=== PATIENT | female | born 1965 | race Caucasian/White ===

== ENCOUNTER 2017-08-24 14:58 | Emergency (ER) | payer MEDICARE, MEDICAID ==
--- NOTE | 2017-08-24 15:13 | EDM.PDOC ---
ED HPI GENERAL MEDICAL PROBLEM - General Chief Complaint: ENT Problem Stated Complaint: SORE THROAT Time Seen by Provider: 08/24/17 15:13 Source of Information: Reports: Patient History Limitations: Reports: No Limitations - History of Present Illness INITIAL COMMENTS - FREE TEXT/NARRATIVE: HISTORY AND PHYSICAL: History of present illness: Patient is a 52-year-old female who presents to the emergency room with a 2 day history of sore throat and nasal congestion. She states a family member was recently diagnosed with strep throat and is concerned she may have it as well. She denies any fever or chills, chest pain or shortness of breath. She denies any abdominal pain, nausea, vomiting, diarrhea or constipation. Review of systems: As per history of present illness and below otherwise all systems reviewed and negative. Past medical history: As per history of present illness and as reviewed below otherwise noncontributory. Surgical history: As per history of present illness and as reviewed below otherwise noncontributory. Social history: No reported history of drug or alcohol abuse. Family history: As per history of present illness and as reviewed below otherwise noncontributory. Physical exam: General: Well developed and well Nourished 52-year-old female. Alert and oriented. Nontoxic appearing and in no acute distress. HEENT: Atraumatic, normocephalic, pupils equal and reactive bilaterally, negative for conjunctival pallor or scleral icterus, mucous membranes moist, posterior oropharynx is erythematous with white patchy exudate, boggy lymph nodes bilaterally, neck supple, nontender, trachea midline. No drooling or trismus noted. No meningeal signs Lungs: Clear to auscultation, breath sounds equal bilaterally, chest nontender. Heart: S1S2, regular rate and rhythm without overt murmur Abdomen: Soft, nondistended, nontender. Negative for masses or hepatosplenomegaly. Negative for costovertebral tenderness. Pelvis: Stable nontender. Genitourinary: Deferred. Rectal: Deferred. Skin: Intact, warm, dry. No lesions or rashes noted. Extremities: Atraumatic, negative for cords or calf pain. Neurovascular unremarkable. Neuro: Awake, alert, oriented. Cranial nerves II through XII unremarkable. Cerebellum unremarkable. Motor and sensory unremarkable throughout. Exam nonfocal. Notes: Will treat the patient with azithromycin (allergy to PCN) Diagnostics: [] Therapeutics: [] Impression: Pharyngitis Plan: 1. Please take the antibiotic as prescribed. 2. Tylenol and/or ibuprofen as needed for pain management. Tramadol has been prescribed for moderate to severe pain. This medication may cause drowsiness so do not take it will driving her needing to be functioning outside of the house. Other [id number] products may be used such as lozenges, Tylenol cough and cold and Robitussin. 3. WArm saltwater gargle and rinse and spit 3-4 times daily. Please get a new toothbrush once her antibiotics are completed. 4. Lopid your primary caregiver in the next 1-2 days. Return to the ED as needed and as discussed. Definitive disposition and diagnosis as appropriate pending reevaluation and review of above. Duration: Day(s): Location: Reports: Neck throat Pain Score (Numeric/FACES): 4 - Related Data Allergies Allergy/AdvReac Type Severity Reaction Status Date / Time codeine Allergy Headache Verified 08/24/17 15:20 Penicillins Allergy Anaphylactic Verified 08/24/17 15:20 Shock Home Meds: Home Meds . [Unable to Verify Home Med List] 07/04/14 [History] Social & Family History - Tobacco Use Smoking Status *Q: Current Every Day Smoker Years of Tobacco use: 30 - Alcohol Use Days Per Week of Alcohol Use: 0 - Recreational Drug Use Recreational Drug Use: No ED ROS ENT - Review of Systems Review Of Systems: ROS reveals no pertinent complaints other than HPI. ED EXAM, ENT - Physical Exam Exam: See Below (See dictation) Course - Vital Signs Last Recorded V/S: Last Vital Signs Temp 100.1 F 08/24/17 15:21 Pulse 109 H 08/24/17 15:39 Resp 18 08/24/17 15:39 BP 145/60 H 08/24/17 15:39 Pulse Ox 98 08/24/17 15:39 Departure - Departure Time of Disposition: 15:30 Disposition: Home, Self-Care 01 Clinical Impression: Pharyngitis Qualifiers: Pharyngitis/tonsillitis etiology: unspecified etiology Qualified Code(s): J02.9 - Acute pharyngitis, unspecified - Discharge Information Instructions: Pharyngitis, [id number] Referrals: Simeon Mora MD [Primary Care Provider] - Forms: ED Department Discharge Additional Instructions: The following information is given to patients seen in the emergency department who are being discharged to home. This information is to outline your options for follow-up care. We provide all patients seen in our emergency department with a follow-up referral. The need for follow-up, as well as the timing and circumstances, are variable depending upon the specifics of your emergency department visit. If you don't have a primary care physician on staff, we will provide you with a referral. We always advise you to contact your personal physician following an emergency department visit to inform them of the circumstance of the visit and for follow-up with them and/or the need for any referrals to a consulting specialist. The emergency department will also refer you to a specialist when appropriate. This referral assures that you have the opportunity for follow-up care with a specialist. All of these measure are taken in an effort to provide you with optimal care, which includes your follow-up. Under all circumstances we always encourage you to contact your private physician who remains a resource for coordinating your care. When calling for follow-up care, please make the office aware that this follow-up is from your recent emergency room visit. If for any reason you are refused follow-up, please contact the [facility] Emergency Department at and asked to speak to the emergency department charge nurse. [facility] [address] [place] [id number] 1. Please take the antibiotic as prescribed. 2. Tylenol and/or ibuprofen as needed for pain management. Tramadol has been prescribed for moderate to severe pain. This medication may cause drowsiness so do not take it will driving her needing to be functioning outside of the house. Other [id number] products may be used such as lozenges, Tylenol cough and cold and Robitussin. 3. WArm saltwater gargle and rinse and spit 3-4 times daily. Please get a new toothbrush once her antibiotics are completed. 4. Lopid your primary caregiver in the next 1-2 days. Return to the ED as needed and as discussed.
[2017-08-24 16:22] VITALS: BP 145/60
== END 2017-08-24 15:39 | disposition home or self-care (01) ==
LOC: MW.ED 14:58
DX: J02.9 Acute pharyngitis, unspecified (principal); F17.200 Nicotine dependence, unspecified, uncomplicated; Z88.5 Allergy status to narcotic agent; Z88.0 Allergy status to penicillin
CPT/HCPCS: 99282; 99283

== ENCOUNTER 2019-01-18 09:12 | Observation (INO) | payer MEDICAID, MEDICARE ==
[2019-01-18] MEDS ORDERED: Sodium Chloride 0.9% 2.5 ML Syringe FLUSH PRN (09:35)
[2019-01-18] MEDS ORDERED: Sodium Chloride 0.9% 1,000 ML IV ONE ×2 (09:35→12:06)
[2019-01-18] MEDS ORDERED: Sodium Chloride 0.9% 10 ML Syringe FLUSH PRN (09:35)
[2019-01-18] MEDS ORDERED: Ondansetron 4 MG/2 ML SDV IVPUSH ONE (09:35)
--- NOTE | 2019-01-18 09:43 | EDM.PDOC ---
ED HPI GENERAL MEDICAL PROBLEM - General Chief Complaint: General Stated Complaint: NAUSEA,ABD PAIN Time Seen by Provider: 01/18/19 09:38 Source of Information: Reports: Patient History Limitations: Reports: No Limitations - History of Present Illness INITIAL COMMENTS - FREE TEXT/NARRATIVE: HISTORY AND PHYSICAL: History of present illness: Patient is a 53-year-old female presents to the ED with complaint of nausea and vomiting 1 week. She states that she since has developed abdominal pain and nonbloody diarrhea. She's had subjective fevers and chills as well as headache. She states that she restarted Remicade for ankylosing spondylitis 2 weeks ago. Past surgical history includes cholecystectomy. Past medical history significant for hypertension and diabetes. Review of systems: As per history of present illness and below otherwise all systems reviewed and negative. Past medical history: As per history of present illness and as reviewed below otherwise noncontributory. Surgical history: As per history of present illness and as reviewed below otherwise noncontributory. Social history: No reported history of drug or alcohol abuse. Family history: As per history of present illness and as reviewed below otherwise noncontributory. Physical exam: General: Patient sitting comfortably in no acute distress and nontoxic appearing HEENT: Atraumatic, normocephalic, pupils reactive, negative for conjunctival pallor or scleral icterus, mucous membranes moist, throat clear, neck supple, nontender, trachea midline. No meningeal signs. Lungs: Clear to auscultation, breath sounds equal bilaterally, chest nontender. Heart: S1S2, regular, negative for clicks, rubs, or overt murmur. Abdomen: Mild diffuse abdominal tenderness to palpation. Soft, nondistended. Negative for masses or hepatosplenomegaly. Negative for costovertebral tenderness. No rigidity, rebound, guarding. Pelvis: Stable nontender. Genitourinary: Deferred. Rectal: Deferred. Extremities: Atraumatic, negative for cords or calf pain. Neurovascular unremarkable. Neuro: Awake, alert, oriented. Cranial nerves II through XII unremarkable. Cerebellum unremarkable. Motor and sensory unremarkable throughout. Exam nonfocal. Notes: Discussed with Dr. Arreaga admitting patient for IV fluids and UTI, he will order antibiotic to be started on the floor. Diagnostics: CBC, CMP, lipase, UA, CT abdomen/pelvis w/o contrast Therapeutics: 1L NS IV 4mg zofran IV 40mEq Potassium Chloride PO Prescriptions: Impression: Dehydration, Pyelonephritis, Hypokalemia, Acute kidney injury Plan: Discussed with Dr. Arreaga, patient will be admitted to observation. Definitive disposition and diagnosis as appropriate pending reevaluation and review of above. Generalized Pain Score (Numeric/FACES): 8 - Related Data Allergies Allergy/AdvReac Type Severity Reaction Status Date / Time codeine Allergy Headache Verified 01/18/19 09:22 Penicillins Allergy Anaphylactic Verified 01/18/19 09:22 Shock Home Meds: Home Meds ALPRAZolam [Alprazolam] 0.5 mg PO BID 01/18/19 [History] Albuterol [Ventolin HFA] 18 gm IH ASDIRECTED 01/18/19 [History] Azithromycin [Zithromax] 250 mg PO DAILY 01/18/19 [History] Doxycycline Hyclate [Morgidox] 100 mg PO BID 01/18/19 [History] Gabapentin [Neurontin] 800 mg PO TID 01/18/19 [History] Insulin Glarg,Human.Rec.Analog [Lantus] 0 unit SUBCUT DAILY 01/18/19 [History] Losartan/Hydrochlorothiazide [Losartan-HCTZ 100-25 MG] 1 each PO ASDIRECTED 01/28 [History] Losartan/Hydrochlorothiazide [Losartan-HCTZ 100-25 MG] 1 each PO ASDIRECTED 01/28 [History] Meloxicam 15 mg PO DAILY 01/18/19 [History] Morphine 15 mg PO Q4H PRN 01/18/19 [History] Omeprazole 40 mg PO DAILY 01/18/19 [History] Zolpidem [Ambien] 10 mg PO BEDTIME 01/18/19 [History] amLODIPine [Norvasc] 10 mg PO DAILY 01/18/19 [History] atorvaSTATin [Lipitor] 40 mg PO BEDTIME 01/18/19 [History] atorvaSTATin [Lipitor] 40 mg PO BEDTIME 01/18/19 [History] guaiFENesin/Codeine Phosphate [Cheratussin AC Syrup] 15 ml PO DAILY 01/18/19 [ History] metFORMIN HCl [Metformin ER Gastric] 1,000 mg PO ASDIRECTED 01/18/19 [History] oxyCODONE ER [OxyCONTIN] 10 mg PO Q12H PRN 01/18/19 [History] rOPINIRole [Requip] 2 mg PO BID 01/18/19 [History] Past Medical History Cardiovascular History: Reports: High Cholesterol, Hypertension SNUBBER History: Reports: Endocrine/Metabolic History: Reports: Diabetes, Type II - Infectious Disease History Infectious Disease History: Reports: Chicken Pox - Past Surgical History GI Surgical History: Reports: Cholecystectomy Female Surgical History: Reports: Hysterectomy Musculoskeletal Surgical History: Reports: Other (See Below) Other Musculoskeletal Surgeries/Procedures:: back surgery and spine disease Social & Family History - Family History Family Medical History: Noncontributory - Tobacco Use Smoking Status *Q: Current Every Day Smoker Years of Tobacco use: 40 Packs/Tins Daily: 0.5 - Caffeine Use Caffeine Use: Reports: Coffee - Recreational Drug Use Recreational Drug Use: No ED ROS GENERAL - Review of Systems Review Of Systems: ROS reveals no pertinent complaints other than HPI. ED EXAM, GENERAL - Physical Exam Exam: See Below (see dictation) Course - Vital Signs Last Recorded V/S: Last Vital Signs Temp 96.6 F 01/18/19 09:23 Pulse 85 01/18/19 10:43 Resp 18 01/18/19 10:43 BP 133/81 01/18/19 10:43 Pulse Ox 99 01/18/19 10:43 - Orders/Labs/Meds Orders: Active Orders 24 hr Category Date Time Status EKG Documentation Completion [RC] STAT Care 01/18/19 11:46 Active CULTURE URINE [RM] Stat Lab 01/18/19 11:12 Received Sodium Chloride 0.9% [Saline Flush] Med 01/18/19 09:35 Active 10 ml FLUSH ASDIRECTED PRN Sodium Chloride 0.9% [Saline Flush] Med 01/18/19 09:35 Active 2.5 ml FLUSH ASDIRECTED PRN Saline Lock Insert [OM.PC] Stat Oth 01/18/19 09:35 Ordered Medication Orders Sodium Chloride (Saline Flush) 10 ml FLUSH ASDIRECTED PRN PRN Reason: Keep Vein Open Last Admin: 01/18/19 09:47 Dose: 10 ml Sodium Chloride (Saline Flush) 2.5 ml FLUSH ASDIRECTED PRN PRN Reason: Keep Vein Open Last Admin: 01/18/19 09:47 Dose: 2.5 ml Labs: Laboratory Tests 01/18/19 01/18/19 01/18/19 Range/Units 09:47 09:47 11:12 WBC 12.13 H (4.0-11.0) K/uL RBC 5.64 (4.30-5.90) M/uL Hgb 15.1 (12.0-16.0) g/dL Hct 43.5 (36.0-46.0) % MCV 77.1 L (80.0-98.0) fL MCH 26.8 L (27.0-32.0) pg MCHC 34.7 (31.0-37.0) g/dL RDW Std Deviation 38.2 (28.0-62.0) fl RDW Coeff of Lenny 14 (11.0-15.0) % Plt Count 324 (150-400) K/uL MPV 10.20 (7.40-12.00) fL Neut % (Auto) 73.3 (48.0-80.0) % Lymph % (Auto) 17.8 (16.0-40.0) % [place] % (Auto) 8.2 (0.0-15.0) % Eos % (Auto) 0.3 (0.0-7.0) % Baso % (Auto) 0.4 (0.0-1.5) % Neut # (Auto) 8.9 H (1.4-5.7) K/uL Lymph # (Auto) 2.2 (0.6-2.4) K/uL [place] # (Auto) 1.0 H (0.0-0.8) K/uL Eos # (Auto) 0.0 (0.0-0.7) K/uL Baso # (Auto) 0.1 (0.0-0.1) K/uL Nucleated RBC % 0.0 /100WBC Nucleated RBCs # 0 K/uL Sodium 132 L (136-145) mmol/L Potassium 2.9 L (3.5-5.1) mmol/L Chloride 89 L (98-107) mmol/L Carbon Dioxide 23.2 (21.0-32.0) mmol/L BUN 34 H (7.0-18.0) mg/dL Creatinine 2.7 H (0.6-1.0) mg/dL Est Cr Clr Drug Dosing 23.16 mL/min Estimated GFR (MDRD) 18.4 ml/min Glucose 233 H (74-106) mg/dL Calcium 9.7 (8.5-10.1) mg/dL Total Bilirubin 1.4 H (0.2-1.0) mg/dL AST 34 (15-37) IU/L ALT 42 (14-63) IU/L Alkaline Phosphatase 126 H (46-116) U/L Total Protein 7.9 (6.4-8.2) g/dL Albumin 4.0 (3.4-5.0) g/dL Globulin 3.9 (2.6-4.0) g/dL Albumin/Globulin Ratio 1.0 (0.9-1.6) Lipase 91 (73-393) U/L Urine Color YELLOW Urine Appearance SLT CLOUDY Urine pH 5.0 (5.0-8.0) Ur Specific Jackson >= 1.030 (1.001-1.035) Urine Protein TRACE H (NEGATIVE) mg/dL Urine Glucose (UA) NEGATIVE (NEGATIVE) mg/dL Urine Ketones NEGATIVE (NEGATIVE) mg/dL Urine Occult Blood TRACE-INTACT H (NEGATIVE) Urine Nitrite NEGATIVE (NEGATIVE) Urine Bilirubin SMALL H (NEGATIVE) Urine Ictotest NEGATIVE Urine Urobilinogen 0.2 (<2.0) EU/dL Ur Leukocyte Esterase SMALL H (NEGATIVE) Urine RBC 0-3 (0-2/HPF) Urine WBC 10-20 (0-5/HPF) Ur Epithelial Cells FEW (NONE-FEW) Urine Bacteria 2+ H (NEGATIVE) Meds: Medications Generic Name Dose Route Start Last Admin Trade Name Freq PRN Reason Stop Dose Admin Sodium Chloride 10 ml 01/18/19 09:35 01/18/19 09:47 Saline Flush FLUSH 10 ml ASDIRECTED PRN Administration Keep Vein Open Sodium Chloride 2.5 ml 01/18/19 09:35 01/18/19 09:47 Saline Flush FLUSH 2.5 ml ASDIRECTED PRN Administration Keep Vein Open Discontinued Medications Generic Name Dose Route Start Last Admin Trade Name Freq PRN Reason Stop Dose Admin Sodium Chloride 1,000 mls @ 999 mls/hr 01/18/19 09:35 01/18/19 09:47 Normal Saline IV 01/18/19 10:35 500 mls/hr STAT ONE Infusion Ondansetron HCl 4 mg 01/18/19 09:35 01/18/19 09:47 Zofran IVPUSH 01/18/19 09:36 4 mg ONETIME ONE Administration Potassium Chloride 40 meq 01/18/19 10:29 01/18/19 10:43 Potassium Chloride PO 01/18/19 10:30 40 meq ONETIME ONE Administration Departure - Departure Time of Disposition: 11:57 Disposition: Refer to Observation Condition: Good Clinical Impression: Dehydration, Pyelonephritis, Hypokalemia, Acute kidney injury - Discharge Information Referrals: PCP,None [Primary Care Provider] - Forms: ED Department Discharge - My Orders Last 24 Hours: My Active Orders 01/18/19 09:35 Sodium Chloride 0.9% [Saline Flush] 10 ml FLUSH ASDIRECTED PRN Sodium Chloride 0.9% [Saline Flush] 2.5 ml FLUSH ASDIRECTED PRN Saline Lock Insert [OM.PC] Stat 01/18/19 11:12 CULTURE URINE [RM] Stat 01/18/19 11:46 EKG Documentation Completion [RC] STAT - Assessment/Plan Last 24 Hours: My Active Orders 01/18/19 09:35 Sodium Chloride 0.9% [Saline Flush] 10 ml FLUSH ASDIRECTED PRN Sodium Chloride 0.9% [Saline Flush] 2.5 ml FLUSH ASDIRECTED PRN Saline Lock Insert [OM.PC] Stat 01/18/19 11:12 CULTURE URINE [RM] Stat 01/18/19 11:46 EKG Documentation Completion [RC] STAT
[2019-01-18 10:16] LABS: CARBON DIOXIDE,CO2 23.2 mmol/L (21.0-32.0); POTASSIUM,K 2.9 mmol/L (3.5-5.1)
[2019-01-18] MEDS ORDERED: Potassium Chloride 10% 20 MEQ/15 ML Soln 30 ML UD Cup PO ONE (10:29)
--- NOTE | 2019-01-18 11:56 | CT ---
CT abdomen and pelvis Technique: Multiple axial sections were obtained from above the dome of the diaphragm inferiorly through the pubic symphysis. Intravenous and oral contrast not utilized. Comparison: No previous abdominal or pelvic imaging. Findings: Nothing acute is seen within the visualized lung bases. Fatty- containing area noted is between the upper lateral right abdominal musculature which is felt to represent incidental lipoma. Noncontrast appearance of the liver shows no focal abnormality. Spleen measures at the upper limits of normal in size at 12.9 cm. Adrenal glands show no nodule. Pancreas shows no discrete abnormality. Surgical clips are seen from prior cholecystectomy. Kidneys show no abnormal calcifications. Minimal vascular calcification is seen within the renal vessels. No ureteral dilatation or ureteral stone is seen. Aorta and iliac vessels shows atherosclerotic calcification without aneurysm. No retroperitoneal adenopathy or mesenteric abnormalities are seen. Small fat- containing umbilical hernia is noted. No pelvic mass or adenopathy is seen. No free fluid or inflammatory change is identified. Appendix is visualized and is normal in size. No free fluid or inflammatory change is seen within the abdomen or pelvis. Bone window settings were reviewed which shows mild scattered degenerative change within the spine which is most prominent within the apophyseal joints of the lumbar spine. Impression: Findings, which are believed to be incidental, as noted above. Nothing acute is seen on noncontrast CT study of the abdomen and pelvis. Diagnostic code #2 MTDD
--- NOTE | 2019-01-18 12:30 | PCM.HP.2 ---
<HectorAsia - Last Filed: 01/18/19 13:35> H&P History of Present Illness - General Date of Service: 01/18/19 Admit Problem/Dx: Admission Diagnosis/Problem Admission Diagnosis/Problem Dehydration - History of Present Illness Initial Comments - Free Text/Narative: The patient is a 53 year old female who reports nausea, vomiting, and diarrhea for the past week. She reports she is having 6-7 "tarry baby poops" everyday, no bright red blood. She denies sick contacts, no new foods, or recent antibiotics. Endorses diffuse abdominal pain that became much worse today. She did recently resume Remicade 2 weeks ago for her ankylosing spondylitis. She reports chills but no fever. She denies chest pain, shortness of breath, or lower ext edema. Reports PMH of insulin dependent diabetes and HTN. In the ER, work up found a slight white count of 12, hyponatremia of 132, hypokalemia of 2.9, Elevated BUN/Cr of 32/2.7 (patient denies hx of kidney issues), UA positive for leuk est, WBC, and bacteria. CT ab/pelvis showed no acute abn. EKG was sinus rhythm, no ST changes. Was started on IVF and given 40 mg of potassium. Generalized Pain Score (Numeric/FACES): 8 - Related Data Allergies/Adverse Reactions: Allergies Allergy/AdvReac Type Severity Reaction Status Date / Time codeine Allergy Headache Verified 01/18/19 13:51 Penicillins Allergy Anaphylactic Verified 01/18/19 13:51 Shock Home Medications: Home Meds ALPRAZolam [Alprazolam] 0.5 mg PO BID PRN 01/18/19 [History] Albuterol [Ventolin HFA] 2 puff IH Q4H PRN 01/18/19 [History] Gabapentin [Neurontin] 800 mg PO TID 01/18/19 [History] Losartan/Hydrochlorothiazide [Losartan-HCTZ 100-25 MG] 1 each PO DAILY 01/18/19 [History] Meloxicam 15 mg PO DAILY 01/18/19 [History] Morphine 15 mg PO BID PRN 01/18/19 [History] Omeprazole 40 mg PO DAILY 01/18/19 [History] Zolpidem [Ambien] 10 mg PO BEDTIME PRN 01/18/19 [History] amLODIPine [Norvasc] 10 mg PO DAILY 01/18/19 [History] atorvaSTATin [Lipitor] 40 mg PO BEDTIME 01/18/19 [History] guaiFENesin/Codeine Phosphate [Cheratussin AC Syrup] 15 ml PO BEDTIME PRN [History] metFORMIN HCl [Metformin ER Gastric] 1,000 mg PO BID 01/18/19 [History] oxyCODONE ER [OxyCONTIN] 10 mg PO Q6H PRN 01/18/19 [History] rOPINIRole [Requip] 2 mg PO BID 01/18/19 [History] Past Medical History Cardiovascular History: Reports: High Cholesterol, Hypertension Respiratory History: Reports: None Gastrointestinal History: Reports: None Genitourinary History: Reports: None 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: Musculoskeletal History: Reports: Other (See Below) (Ankolysing Spondylitis) Neurological History: Reports: None Psychiatric History: Reports: None Endocrine/Metabolic History: Reports: Diabetes, Type II Hematologic History: Reports: None - Infectious Disease History Infectious Disease History: Reports: Chicken Pox - Past Surgical History GI Surgical History: Reports: Cholecystectomy Female Surgical History: Reports: Hysterectomy Musculoskeletal Surgical History: Reports: Other (See Below) Other Musculoskeletal Surgeries/Procedures:: back surgery and spine disease Social & Family History - Family History Family Medical History: Noncontributory - Tobacco Use Smoking Status *Q: Current Every Day Smoker Years of Tobacco use: 40 Packs/Tins Daily: 0.5 - Caffeine Use Caffeine Use: Reports: Coffee - Recreational Drug Use Recreational Drug Use: No H&P Review of Systems - Review of Systems: Review Of Systems: See Below General: Reports: Chills. Denies: Fever HEENT: Reports: No Symptoms Pulmonary: Reports: No Symptoms Cardiovascular: Reports: No Symptoms Gastrointestinal: Reports: Abdominal Pain, Diarrhea, Nausea, Vomiting Genitourinary: Reports: No Symptoms Musculoskeletal: Reports: Back Pain Skin: Reports: No Symptoms Psychiatric: Reports: No Symptoms Neurological: Reports: No Symptoms Hematologic/Lymphatic: Reports: No Symptoms Immunologic: Reports: No Symptoms Exam - Exam Exam: See Below - Vital Signs Vital Signs: Last Vital Signs Temp 97.2 F 01/18/19 12:16 Pulse 86 01/18/19 12:16 Resp 18 01/18/19 12:16 BP 135/71 01/18/19 12:16 Pulse Ox 98 01/18/19 12:16 Weight: 96.615 kg - Exam General: Alert, Oriented HEENT: Conjunctiva Clear, EOMI, Posterior Pharynx Clear, Pupils Equal, Pupils Reactive. No: Mucosa Moist & [place] Lungs: Clear to Auscultation, Normal Respiratory Effort Cardiovascular: Regular Rate, Regular Rhythm GI/Abdominal Exam: Normal Bowel Sounds, Soft, Tender (diffusely). No: Guarding , Rigid, Rebound Extremities: No Pedal Edema Skin: Warm, Dry, Intact Neurological: Cranial Nerves Intact Neuro Extensive - Mental Status: Alert, Oriented x3 Psychiatric: Alert, Normal Affect, Normal Mood - Patient Data Lab Results Last 24 hrs: Laboratory Results - last 24 hr 01/18/19 01/18/19 01/18/19 Range/Units 09:47 09:47 11:12 WBC 12.13 H (4.0-11.0) K/uL RBC 5.64 (4.30-5.90) M/uL Hgb 15.1 (12.0-16.0) g/dL Hct 43.5 (36.0-46.0) % MCV 77.1 L (80.0-98.0) fL MCH 26.8 L (27.0-32.0) pg MCHC 34.7 (31.0-37.0) g/dL RDW Std Deviation 38.2 (28.0-62.0) fl RDW Coeff of Lenny 14 (11.0-15.0) % Plt Count 324 (150-400) K/uL MPV 10.20 (7.40-12.00) fL Neut % (Auto) 73.3 (48.0-80.0) % Lymph % (Auto) 17.8 (16.0-40.0) % Bradley % (Auto) 8.2 (0.0-15.0) % Eos % (Auto) 0.3 (0.0-7.0) % Baso % (Auto) 0.4 (0.0-1.5) % Neut # (Auto) 8.9 H (1.4-5.7) K/uL Lymph # (Auto) 2.2 (0.6-2.4) K/uL Bradley # (Auto) 1.0 H (0.0-0.8) K/uL Eos # (Auto) 0.0 (0.0-0.7) K/uL Baso # (Auto) 0.1 (0.0-0.1) K/uL Nucleated RBC % 0.0 /100WBC Nucleated RBCs # 0 K/uL Sodium 132 L (136-145) mmol/L Potassium 2.9 L (3.5-5.1) mmol/L Chloride 89 L (98-107) mmol/L Carbon Dioxide 23.2 (21.0-32.0) mmol/L BUN 34 H (7.0-18.0) mg/dL Creatinine 2.7 H (0.6-1.0) mg/dL Est Cr Clr Drug Dosing 23.16 mL/min Estimated GFR (MDRD) 18.4 ml/min Glucose 233 H (74-106) mg/dL Calcium 9.7 (8.5-10.1) mg/dL Total Bilirubin 1.4 H (0.2-1.0) mg/dL AST 34 (15-37) IU/L ALT 42 (14-63) IU/L Alkaline Phosphatase 126 H (46-116) U/L Total Protein 7.9 (6.4-8.2) g/dL Albumin 4.0 (3.4-5.0) g/dL Globulin 3.9 (2.6-4.0) g/dL Albumin/Globulin Ratio 1.0 (0.9-1.6) Lipase 91 (73-393) U/L Urine Color YELLOW Urine Appearance SLT CLOUDY Urine pH 5.0 (5.0-8.0) Ur Specific [place] >= 1.030 (1.001-1.035) Urine Protein TRACE H (NEGATIVE) mg/dL Urine Glucose (UA) NEGATIVE (NEGATIVE) mg/dL Urine Ketones NEGATIVE (NEGATIVE) mg/dL Urine Occult Blood TRACE-INTACT H (NEGATIVE) Urine Nitrite NEGATIVE (NEGATIVE) Urine Bilirubin SMALL H (NEGATIVE) Urine Ictotest NEGATIVE Urine Urobilinogen 0.2 (<2.0) EU/dL Ur Leukocyte Esterase SMALL H (NEGATIVE) Urine RBC 0-3 (0-2/HPF) Urine WBC 10-20 (0-5/HPF) Ur Epithelial Cells FEW (NONE-FEW) Urine Bacteria 2+ H (NEGATIVE) Result Diagrams: 01/18/19 09:47 01/18/19 09:47 - Problem List (1) Renal insufficiency SNOMED Code(s): 291062673, 533119691 ICD Code: N28.9 - DISORDER OF KIDNEY AND URETER, UNSPECIFIED Status: Acute Current Visit: Yes (2) UTI (urinary tract infection) SNOMED Code(s): 06951798 ICD Code: N39.0 - URINARY TRACT INFECTION, SITE NOT SPECIFIED Status: Acute Current Visit: Yes (3) Insulin dependent diabetes mellitus SNOMED Code(s): 58967502 ICD Code: E11.9 - TYPE 2 DIABETES MELLITUS WITHOUT COMPLICATIONS; Z79.4 - 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 (CURRENT) USE OF INSULIN Status: Acute Current Visit: Yes (4) HTN (hypertension) SNOMED Code(s): 78811865 ICD Code: I10 - ESSENTIAL (PRIMARY) HYPERTENSION Status: Acute Current Visit: Yes (5) Dehydration SNOMED Code(s): 50482400 ICD Code: E86.0 - DEHYDRATION Status: Acute Current Visit: Yes (6) Hypokalemia SNOMED Code(s): 91819830 ICD Code: E87.6 - HYPOKALEMIA Status: Acute Current Visit: Yes Problem List Initiated/Reviewed/Updated: Yes Orders Last 24hrs: Active Orders 24 hr Category Date Time Status Admission Status [Patient Status] [ADT] Stat ADT 01/18/19 12:00 Active EKG Documentation Completion [RC] STAT Care 01/18/19 11:46 Active CULTURE URINE [RM] Stat Lab 01/18/19 11:12 Received Sodium Chloride 0.9% [Normal Saline] 1,000 ml Med 01/18/19 12:06 Active IV STAT Sodium Chloride 0.9% [Saline Flush] Med 01/18/19 09:35 Active 10 ml FLUSH ASDIRECTED PRN Sodium Chloride 0.9% [Saline Flush] Med 01/18/19 09:35 Active 2.5 ml FLUSH ASDIRECTED PRN Saline Lock Insert [OM.PC] Stat Oth 01/18/19 09:35 Ordered Medication Orders Sodium Chloride (Normal Saline) 1,000 mls @ 125 mls/hr IV STAT ONE Stop: 01/18/19 20:05 Last Admin: 01/18/19 12:14 Dose: 125 mls/hr Sodium Chloride (Saline Flush) 10 ml FLUSH ASDIRECTED PRN PRN Reason: Keep Vein Open Last Admin: 01/18/19 09:47 Dose: 10 ml Sodium Chloride (Saline Flush) 2.5 ml FLUSH ASDIRECTED PRN PRN Reason: Keep Vein Open Last Admin: 01/18/19 09:47 Dose: 2.5 ml Assessment/Plan Comment:: 1. Admit for observation 2. Code status- DNR/DNI 3. Vitals per routine 4. I/Os per routine 5. Diet- diabetic 6. DVT prophylaxis with SCDs 7. Hypokalemia secondary to GI loss (vomiting/diarrhea)- will obtain stool studies, place on telemetry, and check mag level. Will replace potassium in IVF. Recheck BMP this evening. 8. Renal insufficiency secondary to dehydration- IVF, monitor BUN/Cr 9. UTI- urine culture pending, will start on Rocephin- patient allergic to penicillin but reports she has had Keflex before with no issue 10. Insulin dependent DMII- accuchecks and sliding scale insulin <Chava Wilson - Last Filed: 01/18/19 16:09> H&P History of Present Illness - General Admit Problem/Dx: Admission Diagnosis/Problem Admission Diagnosis/Problem Dehydration I have seen and examined the patient independently of medical leader, Dr. Hector DO. I have reviewed and agree with the plan of care as outlined for this patient by her. I have discussed the case with her. Please see orders. Exam - Vital Signs Vital Signs: Last Vital Signs Temp 36.5 C 01/18/19 13:15 Pulse 91 01/18/19 13:15 Resp 18 01/18/19 13:15 BP 140/80 01/18/19 13:15 Pulse Ox 96 01/18/19 13:15 - Patient Data Lab Results Last 24 hrs: Laboratory Results - last 24 hr 01/18/19 01/18/19 01/18/19 Range/Units 09:47 09:47 09:47 WBC 12.13 H (4.0-11.0) K/uL RBC 5.64 (4.30-5.90) M/uL Hgb 15.1 (12.0-16.0) g/dL Hct 43.5 (36.0-46.0) % MCV 77.1 L (80.0-98.0) fL MCH 26.8 L (27.0-32.0) pg MCHC 34.7 (31.0-37.0) g/dL RDW Std Deviation 38.2 (28.0-62.0) fl RDW Coeff of Lenny 14 (11.0-15.0) % Plt Count 324 (150-400) K/uL MPV 10.20 (7.40-12.00) fL Neut % (Auto) 73.3 (48.0-80.0) % Lymph % (Auto) 17.8 (16.0-40.0) % Bradley % (Auto) 8.2 (0.0-15.0) % Eos % (Auto) 0.3 (0.0-7.0) % Baso % (Auto) 0.4 (0.0-1.5) % Neut # (Auto) 8.9 H (1.4-5.7) K/uL Lymph # (Auto) 2.2 (0.6-2.4) K/uL Bradley # (Auto) 1.0 H (0.0-0.8) K/uL Eos # (Auto) 0.0 (0.0-0.7) K/uL Baso # (Auto) 0.1 (0.0-0.1) K/uL Nucleated RBC % 0.0 /100WBC Nucleated RBCs # 0 K/uL Sodium 132 L (136-145) mmol/L Potassium 2.9 L (3.5-5.1) mmol/L Chloride 89 L (98-107) mmol/L Carbon Dioxide 23.2 (21.0-32.0) mmol/L BUN 34 H (7.0-18.0) mg/dL Creatinine 2.7 H (0.6-1.0) mg/dL Est Cr Clr Drug Dosing 23.16 mL/min Estimated GFR (MDRD) 18.4 ml/min Glucose 233 H (74-106) mg/dL POC Glucose (60-110) mg/dL Calcium 9.7 (8.5-10.1) mg/dL Magnesium 1.9 (1.8-2.4) mg/dL Total Bilirubin 1.4 H (0.2-1.0) mg/dL AST 34 (15-37) IU/L ALT 42 (14-63) IU/L Alkaline Phosphatase 126 H (46-116) U/L Total Protein 7.9 (6.4-8.2) g/dL Albumin 4.0 (3.4-5.0) g/dL Globulin 3.9 (2.6-4.0) g/dL Albumin/Globulin Ratio 1.0 (0.9-1.6) Lipase 91 (73-393) U/L Urine Color Urine Appearance Urine pH (5.0-8.0) Ur Specific [place] (1.001-1.035) Urine Protein (NEGATIVE) mg/dL Urine Glucose (UA) (NEGATIVE) mg/dL Urine Ketones (NEGATIVE) mg/dL Urine Occult Blood (NEGATIVE) Urine Nitrite (NEGATIVE) Urine Bilirubin (NEGATIVE) Urine Ictotest Urine Urobilinogen (<2.0) EU/dL Ur Leukocyte Esterase (NEGATIVE) Urine RBC (0-2/HPF) Urine WBC (0-5/HPF) Ur Epithelial Cells (NONE-FEW) Urine Bacteria (NEGATIVE) 01/18/19 01/18/19 Range/Units 11:12 13:42 WBC (4.0-11.0) K/uL RBC (4.30-5.90) M/uL Hgb (12.0-16.0) g/dL Hct (36.0-46.0) % MCV (80.0-98.0) fL MCH (27.0-32.0) pg MCHC (31.0-37.0) g/dL RDW Std Deviation (28.0-62.0) fl RDW Coeff of Lenny (11.0-15.0) % Plt Count (150-400) K/uL MPV (7.40-12.00) fL Neut % (Auto) (48.0-80.0) % Lymph % (Auto) (16.0-40.0) % Bradley % (Auto) (0.0-15.0) % Eos % (Auto) (0.0-7.0) % Baso % (Auto) (0.0-1.5) % Neut # (Auto) (1.4-5.7) K/uL Lymph # (Auto) (0.6-2.4) K/uL [place] # (Auto) (0.0-0.8) K/uL Eos # (Auto) (0.0-0.7) K/uL Baso # (Auto) (0.0-0.1) K/uL Nucleated RBC % /100WBC Nucleated RBCs # K/uL Sodium (136-145) mmol/L Potassium (3.5-5.1) mmol/L Chloride (98-107) mmol/L Carbon Dioxide (21.0-32.0) mmol/L BUN (7.0-18.0) mg/dL Creatinine (0.6-1.0) mg/dL Est Cr Clr Drug Dosing mL/min Estimated GFR (MDRD) ml/min Glucose (74-106) mg/dL POC Glucose 151 H (60-110) mg/dL Calcium (8.5-10.1) mg/dL Magnesium (1.8-2.4) mg/dL Total Bilirubin (0.2-1.0) mg/dL AST (15-37) IU/L ALT (14-63) IU/L Alkaline Phosphatase (46-116) U/L Total Protein (6.4-8.2) g/dL Albumin (3.4-5.0) g/dL Globulin (2.6-4.0) g/dL Albumin/Globulin Ratio (0.9-1.6) Lipase (73-393) U/L Urine Color YELLOW Urine Appearance SLT CLOUDY Urine pH 5.0 (5.0-8.0) Ur Specific [place] >= 1.030 (1.001-1.035) Urine Protein TRACE H (NEGATIVE) mg/dL Urine Glucose (UA) NEGATIVE (NEGATIVE) mg/dL Urine Ketones NEGATIVE (NEGATIVE) mg/dL Urine Occult Blood TRACE-INTACT H (NEGATIVE) Urine Nitrite NEGATIVE (NEGATIVE) Urine Bilirubin SMALL H (NEGATIVE) Urine Ictotest NEGATIVE Urine Urobilinogen 0.2 (<2.0) EU/dL Ur Leukocyte Esterase SMALL H (NEGATIVE) Urine RBC 0-3 (0-2/HPF) Urine WBC 10-20 (0-5/HPF) Ur Epithelial Cells FEW (NONE-FEW) Urine Bacteria 2+ H (NEGATIVE) Result Diagrams: 01/18/19 09:47 01/18/19 09:47 Orders Last 24hrs: Active Orders 24 hr Category Date Time Status Admission Status [Patient Status] [ADT] Stat ADT 01/18/19 12:00 Active Accu Check [Blood Glucose Check, Bedside] [RC] TIDMEALS Care 01/18/19 12:54 Active Antiembolic Devices [RC] PER UNIT ROUTINE Care 01/18/19 12:49 Active Cardiac Monitoring [RC] . DIRECTED Care 01/18/19 12:48 Active Intake and Output [RC] Q12H Care 01/18/19 12:48 Active Telemetry Monitoring [Cardiac Monitoring] [RC] Q8H Care 01/18/19 13:49 Active Vital Signs [RC] Q4H Care 01/18/19 12:48 Active [employer] Diet [DIET] Diet 01/18/19 Dinner Active BASIC METABOLIC PANEL,BMP [CHEM] AM Lab 01/19/19 05:11 Ordered BASIC METABOLIC PANEL,BMP [CHEM] Routine Lab 01/18/19 16:00 Ordered CBC WITH AUTO DIFF [HEME] AM Lab 01/19/19 05:11 Ordered CDIFF TOX A+B [OP] Stat Lab 01/18/19 12:48 Ordered CULTURE STOOL + CAMPY+SHIGATOX [RM] Stat Lab 01/18/19 12:48 Ordered CULTURE URINE [RM] Stat Lab 01/18/19 11:12 Received WBC, STOOL [OP] Stat Lab 01/18/19 12:48 Ordered ALPRAZolam [Xanax] Med 01/18/19 15:05 Active 0.5 mg PO BID PRN Albuterol [Ventolin HFA] Med 01/18/19 15:05 Active 0 gm INH Q4H PRN Gabapentin [Neurontin] Med 01/18/19 22:00 Active 800 mg PO TID Hydrochlorothiazide/Losartan [Hyzaar 50-12.5 MG] Med 01/19/19 09:00 Active 2 tab PO DAILY Insulin Aspart [NovoLOG] Med 01/18/19 17:00 Active See Protocol SUBCUT TIDAC Meloxicam [Mobic] Med 01/19/19 09:00 Active 15 mg PO DAILY Morphine Med 01/18/19 15:05 Active 15 mg PO BID PRN Omeprazole Med 01/19/19 09:00 Active 40 mg PO DAILY Potassium Chloride 40 meq Med 01/18/19 14:30 Active Sodium Chloride 0.9% [Normal Saline] 480 ml IV ONETIME Sodium Chloride 0.9% [Normal Saline] 1,000 ml Med 01/18/19 12:06 Active IV STAT Sodium Chloride 0.9% [Saline Flush] Med 01/18/19 09:35 Active 10 ml FLUSH ASDIRECTED PRN Sodium Chloride 0.9% [Saline Flush] Med 01/18/19 09:35 Active 2.5 ml FLUSH ASDIRECTED PRN amLODIPine [Norvasc] Med 01/19/19 09:00 Active 10 mg PO DAILY atorvaSTATin [Lipitor] Med 01/18/19 21:00 Active 40 mg PO BEDTIME cefTRIAXone [Rocephin in Dextrose,Iso-Osm 1 GM/50 ML] 1 Med 01/18/19 13:45 Active gm Premix Bag 1 bag IV Q24H oxyCODONE ER [OxyCONTIN] Med 01/18/19 15:05 Active 10 mg PO Q6H PRN rOPINIRole [Requip] Med 01/18/19 21:00 Active 2 mg PO BID Isolation [COMM] Stat Oth 01/18/19 12:49 Ordered Saline Lock Insert [OM.PC] Stat Oth 01/18/19 09:35 Ordered Sequential Compression Device [OM.PC] Stat Oth 01/18/19 12:48 Ordered Resuscitation Status Stat Resus Stat 01/18/19 12:48 Ordered Medication Orders Albuterol (Ventolin Hfa) 0 gm INH Q4H PRN PRN Reason: Shortness of Breath Alprazolam (Xanax) 0.5 mg PO BID PRN PRN Reason: Anxiety Last Admin: 01/18/19 16:04 Dose: 0.5 mg Amlodipine Besylate (Norvasc) 10 mg PO DAILY CARLOS Atorvastatin Calcium (Lipitor) 40 mg PO BEDTIME CARLOS Gabapentin (Neurontin) 800 mg PO TID CARLOS HCTZ/Losartan Potassium (Hyzaar 50-12.5 Mg) 2 tab PO DAILY CARLOS Sodium Chloride (Normal Saline) 1,000 mls @ 125 mls/hr IV STAT ONE Stop: 01/18/19 20:05 Last Admin: 01/18/19 12:14 Dose: 125 mls/hr Ceftriaxone Sodium/Dextrose 1 (gm/ Premix) 50 mls @ 100 mls/hr IV Q24H CARLOS Last Admin: 01/18/19 14:07 Dose: 100 mls/hr Potassium Chloride 40 meq/ (Sodium Chloride) 500 mls @ 125 mls/hr IV ONETIME ONE Stop: 01/18/19 18:29 Last Admin: 01/18/19 15:06 Dose: 125 mls/hr Insulin Aspart (Novolog) 0 unit SUBCUT TIDAC CARLOS; Protocol Meloxicam (Mobic) 15 mg PO DAILY CARLOS Morphine Sulfate (Morphine) 15 mg PO BID PRN PRN Reason: Pain Last Admin: 01/18/19 16:04 Dose: 15 mg Omeprazole (Omeprazole) 40 mg PO DAILY [facility] Oxycodone HCl (Oxycontin) 10 mg PO Q6H PRN PRN Reason: Pain Ropinirole HCl (Requip) 2 mg PO BID [facility] Sodium Chloride (Saline Flush) 10 ml FLUSH ASDIRECTED PRN PRN Reason: Keep Vein Open Last Admin: 01/18/19 09:47 Dose: 10 ml Sodium Chloride (Saline Flush) 2.5 ml FLUSH ASDIRECTED PRN PRN Reason: Keep Vein Open Last Admin: 01/18/19 09:47 Dose: 2.5 ml
[2019-01-18] MEDS ORDERED: Potassium Chloride 40 MEQ in Sodium Chloride 0.9% 480 ML IV ONE ×3 (12:50→21:00)
[2019-01-18] MEDS ORDERED: Ciprofloxacin in D5W 400 MG in Premix Bag 1 BAG IV SCH ×4 (13:00→17:00)
[2019-01-18] MEDS: cefTRIAXone 1 GM in Premix Bag 1 BAG IV SCH (14:07)
[2019-01-18] MEDS ORDERED: Albuterol 8 GM Inhaler INH PRN (15:05)
[2019-01-18] MEDS ORDERED: ALPRAZolam 0.5 MG Tab PO PRN (15:05)
[2019-01-18] MEDS: Morphine 15 MG Tab PO PRN (16:04)
[2019-01-18 16:55] LABS: CARBON DIOXIDE,CO2 27.6 mmol/L (21.0-32.0); POTASSIUM,K 3.2 mmol/L (3.5-5.1)
[2019-01-18] MEDS ORDERED: Temazepam 15 MG Cap PO PRN (17:37)
[2019-01-18] MEDS ORDERED: Acetaminophen 325 MG Tab PO PRN (17:37)
[2019-01-18] MEDS: Insulin Aspart 100 Units/ML 3 ML Pen SUBCUT SCH (17:50)
[2019-01-18] MEDS: Nicotine 14 MG/24 Hr Patch TRDERM SCH (19:37)
[2019-01-18] MEDS: atorvaSTATin 40 MG Tab PO SCH (20:18)
[2019-01-18] MEDS: rOPINIRole 1 MG Tab PO SCH (20:18)
[2019-01-18] MEDS: Gabapentin 800 MG Tab PO SCH (21:52)
[2019-01-19] MEDS: Sodium Chloride 0.9% 1,000 ML IV SCH ×4 (00:30→22:54)
[2019-01-19] MEDS: Gabapentin 800 MG Tab PO SCH ×3 (06:23→21:05)
[2019-01-19] MEDS: Insulin Aspart 100 Units/ML 3 ML Pen SUBCUT SCH ×4 (06:45→17:51)
[2019-01-19 06:47] LABS: CARBON DIOXIDE,CO2 25.9 mmol/L (21.0-32.0); POTASSIUM,K 3.3 mmol/L (3.5-5.1)
--- NOTE | 2019-01-19 08:37 | PCM.PN ---
<Asia Young - Last Filed: 01/19/19 08:37> - General Info Date of Service: 01/19/19 Subjective Update: Patient reports she feels much better today. Is still having diarrhea. Nausea/ vomiting improved, able to eat last night. Denies chest pain, shortness of breath, abdominal pain. - Review of Systems General: Reports: No Symptoms HEENT: Reports: No Symptoms Pulmonary: Reports: No Symptoms Cardiovascular: Reports: No Symptoms Gastrointestinal: Reports: Diarrhea. Denies: Abdominal Pain, Nausea, Vomiting Genitourinary: Reports: No Symptoms Musculoskeletal: Reports: No Symptoms Skin: Reports: No Symptoms Neurological: Reports: No Symptoms Psychiatric: Reports: No Symptoms - Patient Data Vitals - Most Recent: Last Vital Signs Temp 98.4 F 01/19/19 07:53 Pulse 75 01/19/19 07:53 Resp 16 01/19/19 07:53 BP 112/59 L 01/19/19 07:53 Pulse Ox 98 01/19/19 07:53 Weight - Most Recent: 96.615 kg I&O - Last 24 Hours: Intake & Output 01/18/19 01/19/19 01/19/19 22:59 06:59 14:59 Intake Total 1410 1989 Output Total 200 1600 Balance 1210 389 Lab Results Last 24 Hours: Laboratory Results - last 24 hr 01/18/19 01/18/19 01/18/19 Range/Units 09:47 09:47 09:47 WBC 12.13 H (4.0-11.0) K/uL RBC 5.64 (4.30-5.90) M/uL Hgb 15.1 (12.0-16.0) g/dL Hct 43.5 (36.0-46.0) % MCV 77.1 L (80.0-98.0) fL MCH 26.8 L (27.0-32.0) pg MCHC 34.7 (31.0-37.0) g/dL RDW Std Deviation 38.2 (28.0-62.0) fl RDW Coeff of Lenny 14 (11.0-15.0) % Plt Count 324 (150-400) K/uL MPV 10.20 (7.40-12.00) fL Neut % (Auto) 73.3 (48.0-80.0) % Lymph % (Auto) 17.8 (16.0-40.0) % [place] % (Auto) 8.2 (0.0-15.0) % Eos % (Auto) 0.3 (0.0-7.0) % Baso % (Auto) 0.4 (0.0-1.5) % Neut # (Auto) 8.9 H (1.4-5.7) K/uL Lymph # (Auto) 2.2 (0.6-2.4) K/uL [place] # (Auto) 1.0 H (0.0-0.8) K/uL Eos # (Auto) 0.0 (0.0-0.7) K/uL Baso # (Auto) 0.1 (0.0-0.1) K/uL Nucleated RBC % 0.0 /100WBC Nucleated RBCs # 0 K/uL Sodium 132 L (136-145) mmol/L Potassium 2.9 L (3.5-5.1) mmol/L Chloride 89 L (98-107) mmol/L Carbon Dioxide 23.2 (21.0-32.0) mmol/L BUN 34 H (7.0-18.0) mg/dL Creatinine 2.7 H (0.6-1.0) mg/dL Est Cr Clr Drug Dosing 23.16 mL/min Estimated GFR (MDRD) 18.4 ml/min Glucose 233 H (74-106) mg/dL POC Glucose (60-110) mg/dL Calcium 9.7 (8.5-10.1) mg/dL Magnesium 1.9 (1.8-2.4) mg/dL Total Bilirubin 1.4 H (0.2-1.0) mg/dL AST 34 (15-37) IU/L ALT 42 (14-63) IU/L Alkaline Phosphatase 126 H (46-116) U/L Total Protein 7.9 (6.4-8.2) g/dL Albumin 4.0 (3.4-5.0) g/dL Globulin 3.9 (2.6-4.0) g/dL Albumin/Globulin Ratio 1.0 (0.9-1.6) Lipase 91 (73-393) U/L Urine Color Urine Appearance Urine pH (5.0-8.0) Ur Specific [place] (1.001-1.035) Urine Protein (NEGATIVE) mg/dL Urine Glucose (UA) (NEGATIVE) mg/dL Urine Ketones (NEGATIVE) mg/dL Urine Occult Blood (NEGATIVE) Urine Nitrite (NEGATIVE) Urine Bilirubin (NEGATIVE) Urine Ictotest Urine Urobilinogen (<2.0) EU/dL Ur Leukocyte Esterase (NEGATIVE) Urine RBC (0-2/HPF) Urine WBC (0-5/HPF) Ur Epithelial Cells (NONE-FEW) Urine Bacteria (NEGATIVE) 01/18/19 01/18/19 01/18/19 Range/Units 11:12 13:42 16:12 WBC (4.0-11.0) K/uL RBC (4.30-5.90) M/uL Hgb (12.0-16.0) g/dL Hct (36.0-46.0) % MCV (80.0-98.0) fL MCH (27.0-32.0) pg MCHC (31.0-37.0) g/dL RDW Std Deviation (28.0-62.0) fl RDW Coeff of Lenny (11.0-15.0) % Plt Count (150-400) K/uL MPV (7.40-12.00) fL Neut % (Auto) (48.0-80.0) % Lymph % (Auto) (16.0-40.0) % [place] % (Auto) (0.0-15.0) % Eos % (Auto) (0.0-7.0) % Baso % (Auto) (0.0-1.5) % Neut # (Auto) (1.4-5.7) K/uL Lymph # (Auto) (0.6-2.4) K/uL [place] # (Auto) (0.0-0.8) K/uL Eos # (Auto) (0.0-0.7) K/uL Baso # (Auto) (0.0-0.1) K/uL Nucleated RBC % /100WBC Nucleated RBCs # K/uL Sodium 136 (136-145) mmol/L Potassium 3.2 L (3.5-5.1) mmol/L Chloride 95 L (98-107) mmol/L Carbon Dioxide 27.6 (21.0-32.0) mmol/L BUN 35 H (7.0-18.0) mg/dL Creatinine 2.8 H (0.6-1.0) mg/dL Est Cr Clr Drug Dosing 22.34 mL/min Estimated GFR (MDRD) 17.6 ml/min Glucose 203 H (74-106) mg/dL POC Glucose 151 H (60-110) mg/dL Calcium 8.6 (8.5-10.1) mg/dL Magnesium (1.8-2.4) mg/dL Total Bilirubin (0.2-1.0) mg/dL AST (15-37) IU/L ALT (14-63) IU/L Alkaline Phosphatase (46-116) U/L Total Protein (6.4-8.2) g/dL Albumin (3.4-5.0) g/dL Globulin (2.6-4.0) g/dL Albumin/Globulin Ratio (0.9-1.6) Lipase (73-393) U/L Urine Color YELLOW Urine Appearance SLT CLOUDY Urine pH 5.0 (5.0-8.0) Ur Specific [place] >= 1.030 (1.001-1.035) Urine Protein TRACE H (NEGATIVE) mg/dL Urine Glucose (UA) NEGATIVE (NEGATIVE) mg/dL Urine Ketones NEGATIVE (NEGATIVE) mg/dL Urine Occult Blood TRACE-INTACT H (NEGATIVE) Urine Nitrite NEGATIVE (NEGATIVE) Urine Bilirubin SMALL H (NEGATIVE) Urine Ictotest NEGATIVE Urine Urobilinogen 0.2 (<2.0) EU/dL Ur Leukocyte Esterase SMALL H (NEGATIVE) Urine RBC 0-3 (0-2/HPF) Urine WBC 10-20 (0-5/HPF) Ur Epithelial Cells FEW (NONE-FEW) Urine Bacteria 2+ H (NEGATIVE) 01/18/19 01/19/19 01/19/19 Range/Units 17:09 06:05 06:05 WBC 6.62 (4.0-11.0) K/uL RBC 4.46 (4.30-5.90) M/uL Hgb 11.8 L (12.0-16.0) g/dL Hct 35.6 L (36.0-46.0) % MCV 79.8 L (80.0-98.0) fL MCH 26.5 L (27.0-32.0) pg MCHC 33.1 (31.0-37.0) g/dL RDW Std Deviation 39.5 (28.0-62.0) fl RDW Coeff of Lenny 14 (11.0-15.0) % Plt Count 200 (150-400) K/uL MPV 10.20 (7.40-12.00) fL Neut % (Auto) 65.3 (48.0-80.0) % Lymph % (Auto) 23.4 (16.0-40.0) % [place] % (Auto) 9.1 (0.0-15.0) % Eos % (Auto) 1.7 (0.0-7.0) % Baso % (Auto) 0.5 (0.0-1.5) % Neut # (Auto) 4.3 (1.4-5.7) K/uL Lymph # (Auto) 1.6 (0.6-2.4) K/uL [place] # (Auto) 0.6 (0.0-0.8) K/uL Eos # (Auto) 0.1 (0.0-0.7) K/uL Baso # (Auto) 0.0 (0.0-0.1) K/uL Nucleated RBC % 0.0 /100WBC Nucleated RBCs # 0 K/uL Sodium 139 (136-145) mmol/L Potassium 3.3 L (3.5-5.1) mmol/L Chloride 102 (98-107) mmol/L Carbon Dioxide 25.9 (21.0-32.0) mmol/L BUN 34 H (7.0-18.0) mg/dL Creatinine 2.0 H (0.6-1.0) mg/dL Est Cr Clr Drug Dosing 31.27 mL/min Estimated GFR (MDRD) 26.0 ml/min Glucose 199 H (74-106) mg/dL POC Glucose 216 H (60-110) mg/dL Calcium 8.5 (8.5-10.1) mg/dL Magnesium (1.8-2.4) mg/dL Total Bilirubin (0.2-1.0) mg/dL AST (15-37) IU/L ALT (14-63) IU/L Alkaline Phosphatase (46-116) U/L Total Protein (6.4-8.2) g/dL Albumin (3.4-5.0) g/dL Globulin (2.6-4.0) g/dL Albumin/Globulin Ratio (0.9-1.6) Lipase (73-393) U/L Urine Color Urine Appearance Urine pH (5.0-8.0) Ur Specific [place] (1.001-1.035) Urine Protein (NEGATIVE) mg/dL Urine Glucose (UA) (NEGATIVE) mg/dL Urine Ketones (NEGATIVE) mg/dL Urine Occult Blood (NEGATIVE) Urine Nitrite (NEGATIVE) Urine Bilirubin (NEGATIVE) Urine Ictotest Urine Urobilinogen (<2.0) EU/dL Ur Leukocyte Esterase (NEGATIVE) Urine RBC (0-2/HPF) Urine WBC (0-5/HPF) Ur Epithelial Cells (NONE-FEW) Urine Bacteria (NEGATIVE) 01/19/19 Range/Units 06:22 WBC (4.0-11.0) K/uL RBC (4.30-5.90) M/uL Hgb (12.0-16.0) g/dL Hct (36.0-46.0) % MCV (80.0-98.0) fL MCH (27.0-32.0) pg MCHC (31.0-37.0) g/dL RDW Std Deviation (28.0-62.0) fl RDW Coeff of Lenny (11.0-15.0) % Plt Count (150-400) K/uL MPV (7.40-12.00) fL Neut % (Auto) (48.0-80.0) % Lymph % (Auto) (16.0-40.0) % [place] % (Auto) (0.0-15.0) % Eos % (Auto) (0.0-7.0) % Baso % (Auto) (0.0-1.5) % Neut # (Auto) (1.4-5.7) K/uL Lymph # (Auto) (0.6-2.4) K/uL [place] # (Auto) (0.0-0.8) K/uL Eos # (Auto) (0.0-0.7) K/uL Baso # (Auto) (0.0-0.1) K/uL Nucleated RBC % /100WBC Nucleated RBCs # K/uL Sodium (136-145) mmol/L Potassium (3.5-5.1) mmol/L Chloride (98-107) mmol/L Carbon Dioxide (21.0-32.0) mmol/L BUN (7.0-18.0) mg/dL Creatinine (0.6-1.0) mg/dL Est Cr Clr Drug Dosing mL/min Estimated GFR (MDRD) ml/min Glucose (74-106) mg/dL POC Glucose 184 H (60-110) mg/dL Calcium (8.5-10.1) mg/dL Magnesium (1.8-2.4) mg/dL Total Bilirubin (0.2-1.0) mg/dL AST (15-37) IU/L ALT (14-63) IU/L Alkaline Phosphatase (46-116) U/L Total Protein (6.4-8.2) g/dL Albumin (3.4-5.0) g/dL Globulin (2.6-4.0) g/dL Albumin/Globulin Ratio (0.9-1.6) Lipase (73-393) U/L Urine Color Urine Appearance Urine pH (5.0-8.0) Ur Specific [place] (1.001-1.035) Urine Protein (NEGATIVE) mg/dL Urine Glucose (UA) (NEGATIVE) mg/dL Urine Ketones (NEGATIVE) mg/dL Urine Occult Blood (NEGATIVE) Urine Nitrite (NEGATIVE) Urine Bilirubin (NEGATIVE) Urine Ictotest Urine Urobilinogen (<2.0) EU/dL Ur Leukocyte Esterase (NEGATIVE) Urine RBC (0-2/HPF) Urine WBC (0-5/HPF) Ur Epithelial Cells (NONE-FEW) Urine Bacteria (NEGATIVE) Med Orders - Current: Current Medications Acetaminophen (Tylenol) 650 mg PO Q4H PRN PRN Reason: Pain/Fever Albuterol (Ventolin Hfa) 0 gm INH Q4H PRN PRN Reason: Shortness of Breath Alprazolam (Xanax) 0.5 mg PO BID PRN PRN Reason: Anxiety Last Admin: 01/18/19 16:04 Dose: 0.5 mg Amlodipine Besylate (Norvasc) 10 mg PO DAILY [facility] Atorvastatin Calcium (Lipitor) 40 mg PO BEDTIME [facility] Last Admin: 01/18/19 20:18 Dose: 40 mg Gabapentin (Neurontin) 800 mg PO TID [facility] Last Admin: 01/19/19 06:23 Dose: 800 mg HCTZ/Losartan Potassium (Hyzaar 50-12.5 Mg) 2 tab PO DAILY [facility] Ceftriaxone Sodium/Dextrose 1 (gm/ Premix) 50 mls @ 100 mls/hr IV Q24H [facility] Last Admin: 01/18/19 14:07 Dose: 100 mls/hr Sodium Chloride (Normal Saline) 1,000 mls @ 125 mls/hr IV ASDIRECTED [facility] Last Admin: 01/19/19 04:42 Dose: 125 mls/hr Insulin Aspart (Novolog) 0 unit SUBCUT TIDAC [facility]; Protocol Last Admin: 01/19/19 06:45 Dose: Not Given Meloxicam (Mobic) 15 mg PO DAILY [facility] Morphine Sulfate (Morphine) 15 mg PO BID PRN PRN Reason: Pain Last Admin: 01/18/19 16:04 Dose: 15 mg Nicotine (Habitrol) 14 mg TRDERM DAILY [facility] Last Admin: 01/18/19 19:37 Dose: 14 mg Omeprazole (Omeprazole) 40 mg PO DAILY [facility] Oxycodone HCl (Oxycontin) 10 mg PO Q6H PRN PRN Reason: Pain Ropinirole HCl (Requip) 2 mg PO BID [facility] Last Admin: 01/18/19 20:18 Dose: 2 mg Sodium Chloride (Saline Flush) 10 ml FLUSH ASDIRECTED PRN PRN Reason: Keep Vein Open Last Admin: 01/18/19 09:47 Dose: 10 ml Sodium Chloride (Saline Flush) 2.5 ml FLUSH ASDIRECTED PRN PRN Reason: Keep Vein Open Last Admin: 01/18/19 09:47 Dose: 2.5 ml Zaleplon (Sonata) 10 mg PO BEDTIME PRN PRN Reason: Sleep Last Admin: 01/18/19 21:53 Dose: 10 mg Discontinued Medications Sodium Chloride (Normal Saline) 1,000 mls @ 999 mls/hr IV STAT ONE Stop: 01/18/19 10:35 Last Infusion: 01/18/19 09:47 Dose: 500 mls/hr Sodium Chloride (Normal Saline) 1,000 mls @ 125 mls/hr IV STAT ONE Stop: 01/18/19 20:05 Last Admin: 01/18/19 12:14 Dose: 125 mls/hr Ciprofloxacin/Dextrose 400 mg/ (Premix) 200 mls @ 200 mls/hr IV Q12H [facility] Last Admin: 01/18/19 13:07 Dose: Not Given Potassium Chloride 40 meq/ (Sodium Chloride) 500 mls @ 125 mls/hr IV ONETIME ONE Stop: 01/18/19 16:49 Last Admin: 01/18/19 13:59 Dose: Not Given Ciprofloxacin/Dextrose 400 mg/ (Premix) 200 mls @ 200 mls/hr IV Q12H [facility] Potassium Chloride 40 meq/ (Sodium Chloride) 500 mls @ 125 mls/hr IV ONETIME ONE Stop: 01/18/19 18:29 Last Admin: 01/18/19 15:06 Dose: 125 mls/hr Potassium Chloride 40 meq/ (Sodium Chloride) 500 mls @ 125 mls/hr IV ONETIME ONE Stop: 01/19/19 00:59 Last Admin: 01/18/19 20:21 Dose: 125 mls/hr Ondansetron HCl (Zofran) 4 mg IVPUSH ONETIME ONE Stop: 01/18/19 09:36 Last Admin: 01/18/19 09:47 Dose: 4 mg Potassium Chloride (Potassium Chloride) 40 meq PO ONETIME ONE Stop: 01/18/19 10:30 Last Admin: 01/18/19 10:43 Dose: 40 meq Temazepam (Restoril) 15 mg PO BEDTIME PRN PRN Reason: Insomnia - Exam General: Alert, Oriented, Cooperative Neck: Supple Lungs: Clear to Auscultation, Normal Respiratory Effort Cardiovascular: Regular Rate, Regular Rhythm GI/Abdominal Exam: Normal Bowel Sounds, Soft, Non-Tender, No Distention Extremities: No Pedal Edema Skin: Warm, Dry, Intact Neurological: No New Focal Deficit Psy/Mental Status: Alert, Normal Affect, Normal Mood - Problem List & Annotations (1) Renal insufficiency SNOMED Code(s): 591028417, 325526415 Code(s): N28.9 - DISORDER OF KIDNEY AND URETER, UNSPECIFIED Status: Acute Current Visit: Yes (2) UTI (urinary tract infection) SNOMED Code(s): 67045820 Code(s): N39.0 - URINARY TRACT INFECTION, SITE NOT SPECIFIED Status: Acute Current Visit: Yes (3) Insulin dependent diabetes mellitus SNOMED Code(s): 48246017 Code(s): E11.9 - TYPE 2 DIABETES MELLITUS WITHOUT COMPLICATIONS; Z79.4 - SNF (CURRENT) USE OF INSULIN Status: Acute Current Visit: Yes (4) HTN (hypertension) SNOMED Code(s): 39239303 Code(s): I10 - ESSENTIAL (PRIMARY) HYPERTENSION Status: Acute Current Visit: Yes (5) Dehydration SNOMED Code(s): 64641969 Code(s): E86.0 - DEHYDRATION Status: Acute Current Visit: Yes (6) Hypokalemia SNOMED Code(s): 08194518 Code(s): E87.6 - HYPOKALEMIA Status: Acute Current Visit: Yes - Problem List Review Problem List Initiated/Reviewed/Updated: Yes - My Orders Last 24 Hours: My Active Orders 01/18/19 12:48 Cardiac Monitoring [RC] . DIRECTED Intake and Output [RC] Q12H Vital Signs [RC] Q4H CDIFF TOX A+B [OP] Stat WBC, STOOL [OP] Stat Sequential Compression Device [OM.PC] Stat Resuscitation Status Stat 01/18/19 12:49 Antiembolic Devices [RC] PER UNIT ROUTINE Isolation [COMM] Stat 01/18/19 12:54 Accu Check [Blood Glucose Check, Bedside] [RC] TIDMEALS 01/18/19 13:45 cefTRIAXone [Rocephin in Dextrose,Iso-Osm 1 GM/50 ML] 1 gm Premix Bag 1 bag IV Q24H 01/18/19 13:49 Telemetry Monitoring [Cardiac Monitoring] [RC] Q8H 01/18/19 15:05 ALPRAZolam [Xanax] 0.5 mg PO BID PRN Albuterol [Ventolin HFA] 0 gm INH Q4H PRN Morphine 15 mg PO BID PRN oxyCODONE ER [OxyCONTIN] 10 mg PO Q6H PRN 01/18/19 17:00 Insulin Aspart [NovoLOG] See Protocol SUBCUT TIDAC 01/18/19 17:37 Acetaminophen [Tylenol] 650 mg PO Q4H PRN 01/18/19 17:44 Zaleplon [Sonata] 10 mg PO BEDTIME PRN 01/18/19 18:45 Sodium Chloride 0.9% [Normal Saline] 1,000 ml IV ASDIRECTED 01/18/19 19:00 Nicotine [Habitrol] 14 mg TRDERM DAILY 01/18/19 21:00 atorvaSTATin [Lipitor] 40 mg PO BEDTIME rOPINIRole [Requip] 2 mg PO BID 01/18/19 22:00 Gabapentin [Neurontin] 800 mg PO TID 01/18/19 Dinner [employer] Diet [DIET] 01/19/19 06:15 CULTURE STOOL + CAMPY+SHIGATOX [RM] Stat 01/19/19 09:00 Hydrochlorothiazide/Losartan [Hyzaar 50-12.5 MG] 2 tab PO DAILY Meloxicam [Mobic] 15 mg PO DAILY Omeprazole 40 mg PO DAILY amLODIPine [Norvasc] 10 mg PO DAILY - Plan Plan:: 1. Hypokalemia secondary to GI loss (vomiting/diarrhea)- Improved- stool studies pending, replace today with oral potassium as no longer having nausea/ vomiting. Continue IVF and monitor on telemetry. 2. Renal insufficiency secondary to dehydration-imprved- continue IVF, monitor BUN/Cr 3. UTI- urine culture pending, will start on Rocephin- patient allergic to penicillin but reports she has had Keflex before with no issue 4. Insulin dependent DMII- accuchecks and sliding scale insulin <Chava Wilson - Last Filed: 01/19/19 12:43> - General Info Admission Dx/Problem (Free Text): I have seen and examined the patient independently of bacteriologist medical, Dr. Hector DO. I have reviewed and agree with the plan of care as outlined for this patient by her. I have discussed the case with her. Please see orders. - Patient Data Vitals - Most Recent: Last Vital Signs Temp 36.9 C 01/19/19 07:53 Pulse 75 01/19/19 07:53 Resp 16 01/19/19 07:53 BP 112/59 L 01/19/19 08:59 Pulse Ox 98 01/19/19 07:53 I&O - Last 24 Hours: Intake & Output 01/18/19 01/19/19 01/19/19 22:59 06:59 14:59 Intake Total 1410 1989 410 Output Total 200 1600 Balance 1210 389 410 Lab Results Last 24 Hours: Laboratory Results - last 24 hr 01/18/19 01/18/19 01/18/19 Range/Units 09:47 13:42 16:12 WBC (4.0-11.0) K/uL RBC (4.30-5.90) M/uL Hgb (12.0-16.0) g/dL Hct (36.0-46.0) % MCV (80.0-98.0) fL MCH (27.0-32.0) pg MCHC (31.0-37.0) g/dL RDW Std Deviation (28.0-62.0) fl RDW Coeff of Lenny (11.0-15.0) % Plt Count (150-400) K/uL MPV (7.40-12.00) fL Neut % (Auto) (48.0-80.0) % Lymph % (Auto) (16.0-40.0) % [place] % (Auto) (0.0-15.0) % Eos % (Auto) (0.0-7.0) % Baso % (Auto) (0.0-1.5) % Neut # (Auto) (1.4-5.7) K/uL Lymph # (Auto) (0.6-2.4) K/uL [place] # (Auto) (0.0-0.8) K/uL Eos # (Auto) (0.0-0.7) K/uL Baso # (Auto) (0.0-0.1) K/uL Nucleated RBC % /100WBC Nucleated RBCs # K/uL Sodium 136 (136-145) mmol/L Potassium 3.2 L (3.5-5.1) mmol/L Chloride 95 L (98-107) mmol/L Carbon Dioxide 27.6 (21.0-32.0) mmol/L BUN 35 H (7.0-18.0) mg/dL Creatinine 2.8 H (0.6-1.0) mg/dL Est Cr Clr Drug Dosing 22.34 mL/min Estimated GFR (MDRD) 17.6 ml/min Glucose 203 H (74-106) mg/dL POC Glucose 151 H (60-110) mg/dL Calcium 8.6 (8.5-10.1) mg/dL Magnesium 1.9 (1.8-2.4) mg/dL 0901/19/19 01/19/19 Range/Units 17:09 06:05 06:05 WBC 6.62 (4.0-11.0) K/uL RBC 4.46 (4.30-5.90) M/uL Hgb 11.8 L (12.0-16.0) g/dL Hct 35.6 L (36.0-46.0) % MCV 79.8 L (80.0-98.0) fL MCH 26.5 L (27.0-32.0) pg MCHC 33.1 (31.0-37.0) g/dL RDW Std Deviation 39.5 (28.0-62.0) fl RDW Coeff of Lenny 14 (11.0-15.0) % Plt Count 200 (150-400) K/uL MPV 10.20 (7.40-12.00) fL Neut % (Auto) 65.3 (48.0-80.0) % Lymph % (Auto) 23.4 (16.0-40.0) % [place] % (Auto) 9.1 (0.0-15.0) % Eos % (Auto) 1.7 (0.0-7.0) % Baso % (Auto) 0.5 (0.0-1.5) % Neut # (Auto) 4.3 (1.4-5.7) K/uL Lymph # (Auto) 1.6 (0.6-2.4) K/uL [place] # (Auto) 0.6 (0.0-0.8) K/uL Eos # (Auto) 0.1 (0.0-0.7) K/uL Baso # (Auto) 0.0 (0.0-0.1) K/uL Nucleated RBC % 0.0 /100WBC Nucleated RBCs # 0 K/uL Sodium 139 (136-145) mmol/L Potassium 3.3 L (3.5-5.1) mmol/L Chloride 102 (98-107) mmol/L Carbon Dioxide 25.9 (21.0-32.0) mmol/L BUN 34 H (7.0-18.0) mg/dL Creatinine 2.0 H (0.6-1.0) mg/dL Est Cr Clr Drug Dosing 31.27 mL/min Estimated GFR (MDRD) 26.0 ml/min Glucose 199 H (74-106) mg/dL POC Glucose 216 H (60-110) mg/dL Calcium 8.5 (8.5-10.1) mg/dL Magnesium (1.8-2.4) mg/dL 01/19/19 01/19/19 01/19/19 Range/Units 06:22 09:03 11:42 WBC (4.0-11.0) K/uL RBC (4.30-5.90) M/uL Hgb (12.0-16.0) g/dL Hct (36.0-46.0) % MCV (80.0-98.0) fL MCH (27.0-32.0) pg MCHC (31.0-37.0) g/dL RDW Std Deviation (28.0-62.0) fl RDW Coeff of Lenny (11.0-15.0) % Plt Count (150-400) K/uL MPV (7.40-12.00) fL Neut % (Auto) (48.0-80.0) % Lymph % (Auto) (16.0-40.0) % [place] % (Auto) (0.0-15.0) % Eos % (Auto) (0.0-7.0) % Baso % (Auto) (0.0-1.5) % Neut # (Auto) (1.4-5.7) K/uL Lymph # (Auto) (0.6-2.4) K/uL [place] # (Auto) (0.0-0.8) K/uL Eos # (Auto) (0.0-0.7) K/uL Baso # (Auto) (0.0-0.1) K/uL Nucleated RBC % /100WBC Nucleated RBCs # K/uL Sodium (136-145) mmol/L Potassium (3.5-5.1) mmol/L Chloride (98-107) mmol/L Carbon Dioxide (21.0-32.0) mmol/L BUN (7.0-18.0) mg/dL Creatinine (0.6-1.0) mg/dL Est Cr Clr Drug Dosing mL/min Estimated GFR (MDRD) ml/min Glucose (74-106) mg/dL POC Glucose 184 H 229 H 212 H (60-110) mg/dL Calcium (8.5-10.1) mg/dL Magnesium (1.8-2.4) mg/dL Darrell Results Last 24 Hours: Microbiology 01/19/19 06:15 Clostridium difficile Toxin A & B - Final Stool / Feces Negative for C.Diff Toxin/AG REFERENCE RANGE: NEGATIVE Stool for WBCs - Final POSITIVE FOR WBC'S REFERENCE RANGE: NO WBC SEEN 01/19/19 06:15 Campylobacter Antigen Assay - Final Stool / Feces Positive Campylobacter Ag Med Orders - Current: Current Medications Acetaminophen (Tylenol) 650 mg PO Q4H PRN PRN Reason: Pain/Fever Albuterol (Ventolin Hfa) 0 gm INH Q4H PRN PRN Reason: Shortness of Breath Alprazolam (Xanax) 0.5 mg PO BID PRN PRN Reason: Anxiety Last Admin: 01/18/19 16:04 Dose: 0.5 mg Amlodipine Besylate (Norvasc) 10 mg PO DAILY [facility] Last Admin: 01/19/19 08:59 Dose: 10 mg Atorvastatin Calcium (Lipitor) 40 mg PO BEDTIME [facility] Last Admin: 01/18/19 20:18 Dose: 40 mg Gabapentin (Neurontin) 800 mg PO TID [facility] Last Admin: 01/19/19 06:23 Dose: 800 mg HCTZ/Losartan Potassium (Hyzaar 50-12.5 Mg) 2 tab PO DAILY [facility] Last Admin: 01/19/19 08:59 Dose: 2 tab Ceftriaxone Sodium/Dextrose 1 (gm/ Premix) 50 mls @ 100 mls/hr IV Q24H [facility] Last Admin: 01/18/19 14:07 Dose: 100 mls/hr Sodium Chloride (Normal Saline) 1,000 mls @ 125 mls/hr IV ASDIRECTED [facility] Last Admin: 01/19/19 04:42 Dose: 125 mls/hr Azithromycin 500 mg/ Sodium (Chloride) 250 mls @ 250 mls/hr IV DAILY [facility] Last Admin: 01/19/19 09:23 Dose: 250 mls/hr Insulin Aspart (Novolog) 0 unit SUBCUT TIDAC [facility]; Protocol Last Admin: 01/19/19 12:18 Dose: 4 units Meloxicam (Mobic) 15 mg PO DAILY [facility] Last Admin: 01/19/19 09:00 Dose: Not Given Morphine Sulfate (Morphine) 15 mg PO BID PRN PRN Reason: Pain Last Admin: 01/18/19 16:04 Dose: 15 mg Nicotine (Habitrol) 14 mg TRDERM DAILY [facility] Last Admin: 01/19/19 08:57 Dose: 14 mg Omeprazole (Omeprazole) 40 mg PO DAILY [facility] Last Admin: 01/19/19 08:59 Dose: 40 mg Oxycodone HCl (Oxycontin) 10 mg PO Q6H PRN PRN Reason: Pain Last Admin: 01/19/19 09:36 Dose: 10 mg Potassium Chloride (Klor-Con M20) 40 meq PO ONETIME ONE Stop: 01/19/19 21:01 Ropinirole HCl (Requip) 2 mg PO BID [facility] Last Admin: 01/19/19 08:58 Dose: 2 mg Sodium Chloride (Saline Flush) 10 ml FLUSH ASDIRECTED PRN PRN Reason: Keep Vein Open Last Admin: 01/18/19 09:47 Dose: 10 ml Sodium Chloride (Saline Flush) 2.5 ml FLUSH ASDIRECTED PRN PRN Reason: Keep Vein Open Last Admin: 01/18/19 09:47 Dose: 2.5 ml Zaleplon (Sonata) 10 mg PO BEDTIME PRN PRN Reason: Sleep Last Admin: 01/18/19 21:53 Dose: 10 mg Discontinued Medications Sodium Chloride (Normal Saline) 1,000 mls @ 999 mls/hr IV STAT ONE Stop: 01/18/19 10:35 Last Infusion: 01/18/19 09:47 Dose: 500 mls/hr Sodium Chloride (Normal Saline) 1,000 mls @ 125 mls/hr IV STAT ONE Stop: 01/18/19 20:05 Last Admin: 01/18/19 12:14 Dose: 125 mls/hr Ciprofloxacin/Dextrose 400 mg/ (Premix) 200 mls @ 200 mls/hr IV Q12H [facility] Last Admin: 01/18/19 13:07 Dose: Not Given Potassium Chloride 40 meq/ (Sodium Chloride) 500 mls @ 125 mls/hr IV ONETIME ONE Stop: 01/18/19 16:49 Last Admin: 01/18/19 13:59 Dose: Not Given Ciprofloxacin/Dextrose 400 mg/ (Premix) 200 mls @ 200 mls/hr IV Q12H [facility] Potassium Chloride 40 meq/ (Sodium Chloride) 500 mls @ 125 mls/hr IV ONETIME ONE Stop: 01/18/19 18:29 Last Admin: 01/18/19 15:06 Dose: 125 mls/hr Potassium Chloride 40 meq/ (Sodium Chloride) 500 mls @ 125 mls/hr IV ONETIME ONE Stop: 01/19/19 00:59 Last Admin: 01/18/19 20:21 Dose: 125 mls/hr Ondansetron HCl (Zofran) 4 mg IVPUSH ONETIME ONE Stop: 01/18/19 09:36 Last Admin: 01/18/19 09:47 Dose: 4 mg Potassium Chloride (Potassium Chloride) 40 meq PO ONETIME ONE Stop: 01/18/19 10:30 Last Admin: 01/18/19 10:43 Dose: 40 meq Potassium Chloride (Klor-Con M20) 40 meq PO ONETIME ONE Stop: 01/19/19 08:41 Last Admin: 01/19/19 09:21 Dose: 40 meq Temazepam (Restoril) 15 mg PO BEDTIME PRN PRN Reason: Insomnia
[2019-01-19] MEDS ORDERED: Potassium Chloride 20 MEQ Tab.ER PO ONE ×2 (08:40→21:00)
[2019-01-19] MEDS: Nicotine 14 MG/24 Hr Patch TRDERM SCH (08:57)
[2019-01-19] MEDS: rOPINIRole 1 MG Tab PO SCH ×3 (08:58→21:05)
[2019-01-19] MEDS: amLODIPine 5 MG Tab PO SCH (08:59)
[2019-01-19] MEDS: Omeprazole 20 MG Cap.CR PO SCH (08:59)
[2019-01-19] MEDS: Hydrochlorothiazide/Losartan 12.5-50 mg Tab PO SCH (08:59)
[2019-01-19] MEDS: Meloxicam 7.5 MG Tab PO SCH (09:00)
[2019-01-19] MEDS: Azithromycin 500 MG in Sodium Chloride 0.9% 250 ML IV SCH (09:23)
[2019-01-19] MEDS: oxyCODONE ER 10 MG TAB.ER PO PRN (09:36)
[2019-01-19] MEDS: cefTRIAXone 1 GM in Premix Bag 1 BAG IV SCH (13:52)
[2019-01-19] MEDS: Morphine 15 MG Tab PO PRN (15:07)
[2019-01-19] MEDS: atorvaSTATin 40 MG Tab PO SCH (21:04)
[2019-01-20] MEDS: oxyCODONE ER 10 MG TAB.ER PO PRN (03:50)
[2019-01-20] MEDS: Gabapentin 800 MG Tab PO SCH (06:21)
[2019-01-20 06:56] LABS: CARBON DIOXIDE,CO2 25.2 mmol/L (21.0-32.0); POTASSIUM,K 3.6 mmol/L (3.5-5.1)
--- NOTE | 2019-01-20 07:08 | PCM.DCSUM1 ---
<Asia Young - Last Filed: 01/20/19 07:13> Discharge Summary - Hospital Course HPI Initial Comments: Admission Date: 01/18/19 Discharge Date: 01/20/19 Admission Diagnosis: 1. Hypokalemia secondary to GI loss 2. Renal insufficiency secondary to dehydration 3. UTI 4. Insulin dependent DMII Discharge Diagnosis: 1. Hypokalemia secondary to GI loss 2. Renal insufficiency secondary to dehydration 3. UTI 4. Insulin dependent DMII 5. Campylobacter positive diarrhea Procedures: None Consults: None Hospital Course: The patient is a 53-year-old female who presented to the ER with nausea, vomiting and diarrhea for the past week. In the ER workup found a slight white count of 12, hypokalemia of 2.9, and elevated BUN/creatinine of 34/2.7. Patient did have signs of UTI on UA. CT abdomen and pelvis showed no acute abnormality. EKG showed sinus rhythm with no ST changes. In the ER, she was started on IVF and given a dose of potassium. She was admitted to the medical surgical floor for observation. For her hypokalemia, this was replaced both via IV and oral route and it resolved. She was monitored on telemetry without any significant events. For the renal insufficiency, she was started on IV fluids and this improved. For her UTI, she was started on Rocephin, urine culture was pending at time of discharge. For her type 2 diabetes, she was put on sliding scale and Accu-Cheks. We did do stool studies for her diarrhea and found her to be Campylobacter positive and started her on azithromycin. By day of discharge her labs improved, she was no longer having diarrhea, she reported she felt much better, and was requesting discharge. Disposition: Home Discharge Condition: vitals stable, tolerating oral diet, ambulating without difficulty, symptom improvement Discharge Instructions: diabetic diet as tolerated, activity as tolerated, take medications as prescribed. Symptoms to report to physician include fever/chills , chest pain, shortness of breath, abdominal pain, worsening diarrhea erythema, drainage/discharge, or not improving as expected. Discharge Medications: ALPRAZolam [Alprazolam] 0.5 mg PO BID PRN Albuterol [Ventolin HFA] 2 puff IH Q4H PRN Gabapentin [Neurontin] 800 mg PO TID Losartan/Hydrochlorothiazide [Losartan-HCTZ 100-25 MG] 1 each PO DAILY Meloxicam 15 mg PO DAILY Morphine 15 mg PO BID PRN Omeprazole 40 mg PO DAILY Zolpidem [Ambien] 10 mg PO BEDTIME PRN amLODIPine [Norvasc] 10 mg PO DAILY atorvaSTATin [Lipitor] 40 mg PO BEDTIME guaiFENesin/Codeine Phosphate [Cheratussin AC Syrup] 15 ml PO BEDTIME PRN metFORMIN HCl [Metformin ER Gastric] 1,000 mg PO BID oxyCODONE ER [OxyCONTIN] 10 mg PO Q6H PRN rOPINIRole [Requip] 2 mg PO BID Azithromycin 500 mg PO DAILY for 2 days cephALEXin [Keflex] 500 mg PO BID for 2 days Follow-up: PCP- Dr. Mora - Discharge Data Discharge Date: 01/20/19 Discharge Disposition: Home, Self-Care 01 Condition: Good - Referral to Home Health Primary Care Physician: PCP None - Discharge Diagnosis/Problem(s) (1) Renal insufficiency SNOMED Code(s): 248362684, 173949431 ICD Code: N28.9 - DISORDER OF KIDNEY AND URETER, UNSPECIFIED Status: Acute (2) UTI (urinary tract infection) SNOMED Code(s): 53509259 ICD Code: N39.0 - URINARY TRACT INFECTION, SITE NOT SPECIFIED Status: Acute (3) Insulin dependent diabetes mellitus SNOMED Code(s): 07044692 ICD Code: E11.9 - TYPE 2 DIABETES MELLITUS WITHOUT COMPLICATIONS; Z79.4 - DAIRY NUTRITION CONSULTANT (CURRENT) USE OF INSULIN Status: Acute (4) HTN (hypertension) SNOMED Code(s): 87708632 ICD Code: I10 - ESSENTIAL (PRIMARY) HYPERTENSION Status: Acute (5) Dehydration SNOMED Code(s): 03583576 ICD Code: E86.0 - DEHYDRATION Status: Acute (6) Hypokalemia SNOMED Code(s): 68903322 ICD Code: E87.6 - HYPOKALEMIA Status: Acute - Discharge Plan Prescriptions/Med Rec: Azithromycin 500 mg PO DAILY 2 Days #2 tablet cephALEXin [Keflex] 500 mg PO BID 2 Days #4 cap Home Medications: Home Meds ALPRAZolam [Alprazolam] 0.5 mg PO BID PRN 01/18/19 [History] Albuterol [Ventolin HFA] 2 puff IH Q4H PRN 01/18/19 [History] Gabapentin [Neurontin] 800 mg PO TID 01/18/19 [History] Losartan/Hydrochlorothiazide [Losartan-HCTZ 100-25 MG] 1 each PO DAILY 01/18/19 [History] Meloxicam 15 mg PO DAILY 01/18/19 [History] Morphine 15 mg PO BID PRN 01/18/19 [History] Omeprazole 40 mg PO DAILY 01/18/19 [History] Zolpidem [Ambien] 10 mg PO BEDTIME PRN 01/18/19 [History] amLODIPine [Norvasc] 10 mg PO DAILY 01/18/19 [History] atorvaSTATin [Lipitor] 40 mg PO BEDTIME 01/18/19 [History] guaiFENesin/Codeine Phosphate [Cheratussin AC Syrup] 15 ml PO BEDTIME PRN [History] metFORMIN HCl [Metformin ER Gastric] 1,000 mg PO BID 01/18/19 [History] oxyCODONE ER [OxyCONTIN] 10 mg PO Q6H PRN 01/18/19 [History] rOPINIRole [Requip] 2 mg PO BID 01/18/19 [History] Azithromycin 500 mg PO DAILY 2 Days #2 tablet 01/20/19 [Rx] cephALEXin [Keflex] 500 mg PO BID 2 Days #4 cap 01/20/19 [Rx] Patient Handouts: How to Take Your Blood Pressure, [id number], Campylobacter Gastroenteritis, Urinary Tract Infection, Adult, [id number], Dehydration, Adult, [id number], Form - Blood Pressure Record Sheet, Azithromycin tablets, Cephalexin tablets or capsules Referrals: [facility] [Outside] Simeon Mora MD [Physician] - 01/29/19 12:45 pm - Discharge Summary/Plan Comment DC Time >30 min.: No - Patient Data Vitals - Most Recent: Last Vital Signs Temp 97.2 F 01/20/19 04:00 Pulse 66 01/20/19 04:00 Resp 16 01/20/19 04:00 BP 95/48 L 01/20/19 04:00 Pulse Ox 95 01/20/19 04:00 Weight - Most Recent: 96.615 kg I&O - Last 24 hours: Intake & Output 01/19/19 01/20/1919 22:59 06:59 14:59 Intake Total 1270 2540 Output Total 1000 2100 Balance 270 440 Lab Results - Last 24 hrs: Laboratory Results - last 24 hr 01/19/19 01/19/19 01/19/19 Range/Units 09:03 11:42 16:17 WBC (4.0-11.0) K/uL RBC (4.30-5.90) M/uL Hgb (12.0-16.0) g/dL Hct (36.0-46.0) % MCV (80.0-98.0) fL MCH (27.0-32.0) pg MCHC (31.0-37.0) g/dL RDW Std Deviation (28.0-62.0) fl RDW Coeff of Lenny (11.0-15.0) % Plt Count (150-400) K/uL MPV (7.40-12.00) fL Neut % (Auto) (48.0-80.0) % Lymph % (Auto) (16.0-40.0) % Foard % (Auto) (0.0-15.0) % Eos % (Auto) (0.0-7.0) % Baso % (Auto) (0.0-1.5) % Neut # (Auto) (1.4-5.7) K/uL Lymph # (Auto) (0.6-2.4) K/uL Foard # (Auto) (0.0-0.8) K/uL Eos # (Auto) (0.0-0.7) K/uL Baso # (Auto) (0.0-0.1) K/uL Nucleated RBC % /100WBC Nucleated RBCs # K/uL Sodium (136-145) mmol/L Potassium (3.5-5.1) mmol/L Chloride (98-107) mmol/L Carbon Dioxide (21.0-32.0) mmol/L BUN (7.0-18.0) mg/dL Creatinine (0.6-1.0) mg/dL Est Cr Clr Drug Dosing mL/min Estimated GFR (MDRD) ml/min Glucose (74-106) mg/dL POC Glucose 229 H 212 H 168 H (60-110) mg/dL Calcium (8.5-10.1) mg/dL 01/19/19 01/20/19 01/20/19 Range/Units 20:28 06:05 06:05 WBC 4.79 (4.0-11.0) K/uL RBC 3.94 L (4.30-5.90) M/uL Hgb 10.4 L (12.0-16.0) g/dL Hct 31.9 L (36.0-46.0) % MCV 81.0 (80.0-98.0) fL MCH 26.4 L (27.0-32.0) pg MCHC 32.6 (31.0-37.0) g/dL RDW Std Deviation 40.2 (28.0-62.0) fl RDW Coeff of Lenny 14 (11.0-15.0) % Plt Count 153 (150-400) K/uL MPV 10.20 (7.40-12.00) fL Neut % (Auto) 56.4 (48.0-80.0) % Lymph % (Auto) 33.0 (16.0-40.0) % Foard % (Auto) 6.7 (0.0-15.0) % Eos % (Auto) 3.1 (0.0-7.0) % Baso % (Auto) 0.8 (0.0-1.5) % Neut # (Auto) 2.7 (1.4-5.7) K/uL Lymph # (Auto) 1.6 (0.6-2.4) K/uL Foard # (Auto) 0.3 (0.0-0.8) K/uL Eos # (Auto) 0.2 (0.0-0.7) K/uL Baso # (Auto) 0.0 (0.0-0.1) K/uL Nucleated RBC % 0.0 /100WBC Nucleated RBCs # 0 K/uL Sodium 138 (136-145) mmol/L Potassium 3.6 (3.5-5.1) mmol/L Chloride 103 (98-107) mmol/L Carbon Dioxide 25.2 (21.0-32.0) mmol/L BUN 21 H (7.0-18.0) mg/dL Creatinine 1.3 H (0.6-1.0) mg/dL Est Cr Clr Drug Dosing 48.11 mL/min Estimated GFR (MDRD) 42.7 ml/min Glucose 262 H (74-106) mg/dL POC Glucose 274 H (60-110) mg/dL Calcium 7.6 L (8.5-10.1) mg/dL 01/20/19 Range/Units 06:20 WBC (4.0-11.0) K/uL RBC (4.30-5.90) M/uL Hgb (12.0-16.0) g/dL Hct (36.0-46.0) % MCV (80.0-98.0) fL MCH (27.0-32.0) pg MCHC (31.0-37.0) g/dL RDW Std Deviation (28.0-62.0) fl RDW Coeff of Lenny (11.0-15.0) % Plt Count (150-400) K/uL MPV (7.40-12.00) fL Neut % (Auto) (48.0-80.0) % Lymph % (Auto) (16.0-40.0) % Foard % (Auto) (0.0-15.0) % Eos % (Auto) (0.0-7.0) % Baso % (Auto) (0.0-1.5) % Neut # (Auto) (1.4-5.7) K/uL Lymph # (Auto) (0.6-2.4) K/uL Foard # (Auto) (0.0-0.8) K/uL Eos # (Auto) (0.0-0.7) K/uL Baso # (Auto) (0.0-0.1) K/uL Nucleated RBC % /100WBC Nucleated RBCs # K/uL Sodium (136-145) mmol/L Potassium (3.5-5.1) mmol/L Chloride (98-107) mmol/L Carbon Dioxide (21.0-32.0) mmol/L BUN (7.0-18.0) mg/dL Creatinine (0.6-1.0) mg/dL Est Cr Clr Drug Dosing mL/min Estimated GFR (MDRD) ml/min Glucose (74-106) mg/dL POC Glucose 277 H (60-110) mg/dL Calcium (8.5-10.1) mg/dL DUYEN Results - Last 24 hrs: Microbiology 01/19/19 06:15 Campylobacter Antigen Assay - Final Stool / Feces Positive Campylobacter Ag Shiga Toxin I - Final NEGATIVE FOR SHIGA TOXIN 1 REFERENCE RANGE: NEGATIVE Shiga Toxin II - Final NEGATIVE FOR SHIGA TOXIN 2 REFERENCE RANGE: NEGATIVE 01/19/19 06:15 Clostridium difficile Toxin A & B - Final Stool / Feces Negative for C.Diff Toxin/AG REFERENCE RANGE: NEGATIVE Stool for WBCs - Final POSITIVE FOR WBC'S REFERENCE RANGE: NO WBC SEEN Med Orders - Current: Current Medications Acetaminophen (Tylenol) 650 mg PO Q4H PRN PRN Reason: Pain/Fever Albuterol (Ventolin Hfa) 0 gm INH Q4H PRN PRN Reason: Shortness of Breath Alprazolam (Xanax) 0.5 mg PO BID PRN PRN Reason: Anxiety Last Admin: 01/18/19 16:04 Dose: 0.5 mg Amlodipine Besylate (Norvasc) 10 mg PO DAILY [facility] Last Admin: 01/19/19 08:59 Dose: 10 mg Atorvastatin Calcium (Lipitor) 40 mg PO BEDTIME [facility] Last Admin: 01/19/19 21:04 Dose: 40 mg Gabapentin (Neurontin) 800 mg PO TID [facility] Last Admin: 01/20/19 06:21 Dose: 800 mg HCTZ/Losartan Potassium (Hyzaar 50-12.5 Mg) 2 tab PO DAILY [facility] Last Admin: 01/19/19 08:59 Dose: 2 tab Ceftriaxone Sodium/Dextrose 1 (gm/ Premix) 50 mls @ 100 mls/hr IV Q24H [facility] Last Admin: 01/19/19 13:52 Dose: 100 mls/hr Sodium Chloride (Normal Saline) 1,000 mls @ 125 mls/hr IV ASDIRECTED [facility] Last Admin: 01/19/19 22:54 Dose: 125 mls/hr Azithromycin 500 mg/ Sodium (Chloride) 250 mls @ 250 mls/hr IV DAILY [facility] Last Admin: 01/19/19 09:23 Dose: 250 mls/hr Insulin Aspart (Novolog) 0 unit SUBCUT TIDAC [facility]; Protocol Last Admin: 01/19/19 17:51 Dose: 2 units Meloxicam (Mobic) 15 mg PO DAILY [facility] Last Admin: 01/19/19 09:00 Dose: Not Given Morphine Sulfate (Morphine) 15 mg PO BID PRN PRN Reason: Pain Last Admin: 01/19/19 15:07 Dose: 15 mg Nicotine (Habitrol) 14 mg TRDERM DAILY [facility] Last Admin: 01/19/19 08:57 Dose: 14 mg Omeprazole (Omeprazole) 40 mg PO DAILY [facility] Last Admin: 01/19/19 08:59 Dose: 40 mg Oxycodone HCl (Oxycontin) 10 mg PO Q6H PRN PRN Reason: Pain Last Admin: 01/20/19 03:50 Dose: 10 mg Ropinirole HCl (Requip) 2 mg PO BID [facility] Last Admin: 01/19/19 21:05 Dose: Not Given Sodium Chloride (Saline Flush) 10 ml FLUSH ASDIRECTED PRN PRN Reason: Keep Vein Open Last Admin: 01/18/19 09:47 Dose: 10 ml Sodium Chloride (Saline Flush) 2.5 ml FLUSH ASDIRECTED PRN PRN Reason: Keep Vein Open Last Admin: 01/18/19 09:47 Dose: 2.5 ml Zaleplon (Sonata) 10 mg PO BEDTIME PRN PRN Reason: Sleep Last Admin: 01/19/19 21:13 Dose: 10 mg Discontinued Medications Sodium Chloride (Normal Saline) 1,000 mls @ 999 mls/hr IV STAT ONE Stop: 01/18/19 10:35 Last Infusion: 01/18/19 09:47 Dose: 500 mls/hr Sodium Chloride (Normal Saline) 1,000 mls @ 125 mls/hr IV STAT ONE Stop: 01/18/19 20:05 Last Admin: 01/18/19 12:14 Dose: 125 mls/hr Ciprofloxacin/Dextrose 400 mg/ (Premix) 200 mls @ 200 mls/hr IV Q12H [facility] Last Admin: 01/18/19 13:07 Dose: Not Given Potassium Chloride 40 meq/ (Sodium Chloride) 500 mls @ 125 mls/hr IV ONETIME ONE Stop: 01/18/19 16:49 Last Admin: 01/18/19 13:59 Dose: Not Given Ciprofloxacin/Dextrose 400 mg/ (Premix) 200 mls @ 200 mls/hr IV Q12H [facility] Potassium Chloride 40 meq/ (Sodium Chloride) 500 mls @ 125 mls/hr IV ONETIME ONE Stop: 01/18/19 18:29 Last Admin: 01/18/19 15:06 Dose: 125 mls/hr Potassium Chloride 40 meq/ (Sodium Chloride) 500 mls @ 125 mls/hr IV ONETIME ONE Stop: 01/19/19 00:59 Last Admin: 01/18/19 20:21 Dose: 125 mls/hr Ondansetron HCl (Zofran) 4 mg IVPUSH ONETIME ONE Stop: 01/18/19 09:36 Last Admin: 01/18/19 09:47 Dose: 4 mg Potassium Chloride (Potassium Chloride) 40 meq PO ONETIME ONE Stop: 01/18/19 10:30 Last Admin: 01/18/19 10:43 Dose: 40 meq Potassium Chloride (Klor-Con M20) 40 meq PO ONETIME ONE Stop: 01/19/19 08:41 Last Admin: 01/19/19 09:21 Dose: 40 meq Potassium Chloride (Klor-Con M20) 40 meq PO ONETIME ONE Stop: 01/19/19 21:01 Last Admin: 01/19/19 21:05 Dose: 40 meq Temazepam (Restoril) 15 mg PO BEDTIME PRN PRN Reason: Insomnia <Chava Wilson - Last Filed: 01/20/19 17:03> Discharge Summary - Hospital Course HPI Initial Comments: I have seen and examined the patient independently of medical parasitologist, Dr. Hector DO. I have reviewed and agree with the plan of care as outlined for this patient by her. I have discussed the case with her. Please see orders. - Referral to Home Health Primary Care Physician: PCP None - Patient Data Vitals - Most Recent: Last Vital Signs Temp 36.2 C 01/20/19 07:43 Pulse 67 01/20/19 07:43 Resp 16 01/20/19 07:43 BP 126/72 01/20/19 08:01 Pulse Ox 99 01/20/19 07:43 I&O - Last 24 hours: Intake & Output 01/20/19 01/20/19 01/20/19 06:59 14:59 22:59 Intake Total 2540 360 Output Total 2100 1150 Balance 440 -790 Lab Results - Last 24 hrs: Laboratory Results - last 24 hr 01/19/19 01/20/19 01/20/19 Range/Units 20:28 06:05 06:05 WBC 4.79 (4.0-11.0) K/uL RBC 3.94 L (4.30-5.90) M/uL Hgb 10.4 L (12.0-16.0) g/dL Hct 31.9 L (36.0-46.0) % MCV 81.0 (80.0-98.0) fL MCH 26.4 L (27.0-32.0) pg MCHC 32.6 (31.0-37.0) g/dL RDW Std Deviation 40.2 (28.0-62.0) fl RDW Coeff of Lenny 14 (11.0-15.0) % Plt Count 153 (150-400) K/uL MPV 10.20 (7.40-12.00) fL Neut % (Auto) 56.4 (48.0-80.0) % Lymph % (Auto) 33.0 (16.0-40.0) % Foard % (Auto) 6.7 (0.0-15.0) % Eos % (Auto) 3.1 (0.0-7.0) % Baso % (Auto) 0.8 (0.0-1.5) % Neut # (Auto) 2.7 (1.4-5.7) K/uL Lymph # (Auto) 1.6 (0.6-2.4) K/uL Foard # (Auto) 0.3 (0.0-0.8) K/uL Eos # (Auto) 0.2 (0.0-0.7) K/uL Baso # (Auto) 0.0 (0.0-0.1) K/uL Nucleated RBC % 0.0 /100WBC Nucleated RBCs # 0 K/uL Sodium 138 (136-145) mmol/L Potassium 3.6 (3.5-5.1) mmol/L Chloride 103 (98-107) mmol/L Carbon Dioxide 25.2 (21.0-32.0) mmol/L BUN 21 H (7.0-18.0) mg/dL Creatinine 1.3 H (0.6-1.0) mg/dL Est Cr Clr Drug Dosing 48.11 mL/min Estimated GFR (MDRD) 42.7 ml/min Glucose 262 H (74-106) mg/dL POC Glucose 274 H (60-110) mg/dL Calcium 7.6 L (8.5-10.1) mg/dL 01/20/19 Range/Units 06:20 WBC (4.0-11.0) K/uL RBC (4.30-5.90) M/uL Hgb (12.0-16.0) g/dL Hct (36.0-46.0) % MCV (80.0-98.0) fL MCH (27.0-32.0) pg MCHC (31.0-37.0) g/dL RDW Std Deviation (28.0-62.0) fl RDW Coeff of Lenny (11.0-15.0) % Plt Count (150-400) K/uL MPV (7.40-12.00) fL Neut % (Auto) (48.0-80.0) % Lymph % (Auto) (16.0-40.0) % Foard % (Auto) (0.0-15.0) % Eos % (Auto) (0.0-7.0) % Baso % (Auto) (0.0-1.5) % Neut # (Auto) (1.4-5.7) K/uL Lymph # (Auto) (0.6-2.4) K/uL Foard # (Auto) (0.0-0.8) K/uL Eos # (Auto) (0.0-0.7) K/uL Baso # (Auto) (0.0-0.1) K/uL Nucleated RBC % /100WBC Nucleated RBCs # K/uL Sodium (136-145) mmol/L Potassium (3.5-5.1) mmol/L Chloride (98-107) mmol/L Carbon Dioxide (21.0-32.0) mmol/L BUN (7.0-18.0) mg/dL Creatinine (0.6-1.0) mg/dL Est Cr Clr Drug Dosing mL/min Estimated GFR (MDRD) ml/min Glucose (74-106) mg/dL POC Glucose 277 H (60-110) mg/dL Calcium (8.5-10.1) mg/dL DUYEN Results - Last 24 hrs: Microbiology 01/19/19 06:15 Campylobacter Antigen Assay - Final Stool / Feces Positive Campylobacter Ag Shiga Toxin I - Final NEGATIVE FOR SHIGA TOXIN 1 REFERENCE RANGE: NEGATIVE Shiga Toxin II - Final NEGATIVE FOR SHIGA TOXIN 2 REFERENCE RANGE: NEGATIVE Med Orders - Current: Current Medications Discontinued Medications Acetaminophen (Tylenol) 650 mg PO Q4H PRN PRN Reason: Pain/Fever Albuterol (Ventolin Hfa) 0 gm INH Q4H PRN PRN Reason: Shortness of Breath Alprazolam (Xanax) 0.5 mg PO BID PRN PRN Reason: Anxiety Last Admin: 01/18/19 16:04 Dose: 0.5 mg Amlodipine Besylate (Norvasc) 10 mg PO DAILY [facility] Last Admin: 01/20/19 08:01 Dose: 10 mg Atorvastatin Calcium (Lipitor) 40 mg PO BEDTIME [facility] Last Admin: 01/19/19 21:04 Dose: 40 mg Gabapentin (Neurontin) 800 mg PO TID [facility] Last Admin: 01/20/19 06:21 Dose: 800 mg HCTZ/Losartan Potassium (Hyzaar 50-12.5 Mg) 2 tab PO DAILY [facility] Last Admin: 01/20/19 08:02 Dose: 2 tab Sodium Chloride (Normal Saline) 1,000 mls @ 999 mls/hr IV STAT ONE Stop: 01/18/19 10:35 Last Infusion: 01/18/19 09:47 Dose: 500 mls/hr Sodium Chloride (Normal Saline) 1,000 mls @ 125 mls/hr IV STAT ONE Stop: 01/18/19 20:05 Last Admin: 01/18/19 12:14 Dose: 125 mls/hr Ciprofloxacin/Dextrose 400 mg/ (Premix) 200 mls @ 200 mls/hr IV Q12H [facility] Last Admin: 01/18/19 13:07 Dose: Not Given Potassium Chloride 40 meq/ (Sodium Chloride) 500 mls @ 125 mls/hr IV ONETIME ONE Stop: 01/18/19 16:49 Last Admin: 01/18/19 13:59 Dose: Not Given Ciprofloxacin/Dextrose 400 mg/ (Premix) 200 mls @ 200 mls/hr IV Q12H [facility] Ceftriaxone Sodium/Dextrose 1 (gm/ Premix) 50 mls @ 100 mls/hr IV Q24H [facility] Last Admin: 01/19/19 13:52 Dose: 100 mls/hr Potassium Chloride 40 meq/ (Sodium Chloride) 500 mls @ 125 mls/hr IV ONETIME ONE Stop: 01/18/19 18:29 Last Admin: 01/18/19 15:06 Dose: 125 mls/hr Potassium Chloride 40 meq/ (Sodium Chloride) 500 mls @ 125 mls/hr IV ONETIME ONE Stop: 01/19/19 00:59 Last Admin: 01/18/19 20:21 Dose: 125 mls/hr Sodium Chloride (Normal Saline) 1,000 mls @ 125 mls/hr IV ASDIRECTED [facility] Last Admin: 01/19/19 22:54 Dose: 125 mls/hr Azithromycin 500 mg/ Sodium (Chloride) 250 mls @ 250 mls/hr IV DAILY [facility] Last Admin: 01/20/19 08:08 Dose: Not Given Insulin Aspart (Novolog) 0 unit SUBCUT TIDAC [facility]; Protocol Last Admin: 01/20/19 07:58 Dose: 6 units Meloxicam (Mobic) 15 mg PO DAILY [facility] Last Admin: 01/20/19 08:08 Dose: Not Given Morphine Sulfate (Morphine) 15 mg PO BID PRN PRN Reason: Pain Last Admin: 01/19/19 15:07 Dose: 15 mg Nicotine (Habitrol) 14 mg TRDERM DAILY [facility] Last Admin: 01/20/19 08:07 Dose: Not Given Omeprazole (Omeprazole) 40 mg PO DAILY [facility] Last Admin: 01/20/19 08:01 Dose: 40 mg Ondansetron HCl (Zofran) 4 mg IVPUSH ONETIME ONE Stop: 01/18/19 09:36 Last Admin: 01/18/19 09:47 Dose: 4 mg Oxycodone HCl (Oxycontin) 10 mg PO Q6H PRN PRN Reason: Pain Last Admin: 01/20/19 03:50 Dose: 10 mg Potassium Chloride (Potassium Chloride) 40 meq PO ONETIME ONE Stop: 01/18/19 10:30 Last Admin: 01/18/19 10:43 Dose: 40 meq Potassium Chloride (Klor-Con M20) 40 meq PO ONETIME ONE Stop: 01/19/19 08:41 Last Admin: 01/19/19 09:21 Dose: 40 meq Potassium Chloride (Klor-Con M20) 40 meq PO ONETIME ONE Stop: 01/19/19 21:01 Last Admin: 01/19/19 21:05 Dose: 40 meq Ropinirole HCl (Requip) 2 mg PO BID [facility] Last Admin: 01/20/19 08:01 Dose: 2 mg Sodium Chloride (Saline Flush) 10 ml FLUSH ASDIRECTED PRN PRN Reason: Keep Vein Open Last Admin: 01/18/19 09:47 Dose: 10 ml Sodium Chloride (Saline Flush) 2.5 ml FLUSH ASDIRECTED PRN PRN Reason: Keep Vein Open Last Admin: 01/18/19 09:47 Dose: 2.5 ml Temazepam (Restoril) 15 mg PO BEDTIME PRN PRN Reason: Insomnia Zaleplon (Sonata) 10 mg PO BEDTIME PRN PRN Reason: Sleep Last Admin: 01/19/19 21:13 Dose: 10 mg
[2019-01-20 07:43] VITALS: BP 126/72; PULSE 67
[2019-01-20] MEDS: Insulin Aspart 100 Units/ML 3 ML Pen SUBCUT SCH (07:58)
[2019-01-20] MEDS: rOPINIRole 1 MG Tab PO SCH (08:01)
[2019-01-20] MEDS: amLODIPine 5 MG Tab PO SCH (08:01)
[2019-01-20] MEDS: Omeprazole 20 MG Cap.CR PO SCH (08:01)
[2019-01-20] MEDS: Hydrochlorothiazide/Losartan 12.5-50 mg Tab PO SCH (08:02)
[2019-01-20] MEDS: Nicotine 14 MG/24 Hr Patch TRDERM SCH (08:07)
[2019-01-20] MEDS: Azithromycin 500 MG in Sodium Chloride 0.9% 250 ML IV SCH (08:08)
[2019-01-20] MEDS: Meloxicam 7.5 MG Tab PO SCH (08:08)
== END 2019-01-20 09:50 | disposition home or self-care (01) ==
LOC: MW.ED 09:12 → MW.MS 12:00
PROVIDERS: ADMIT Internal Medicine; ATTEND Internal Medicine
DX: E87.6 Hypokalemia (principal); N28.9 Disorder of kidney and ureter, unspecified; E86.0 Dehydration; N39.0 Urinary tract infection, site not specified; E11.9 Type 2 diabetes mellitus without complications; A04.5 Campylobacter enteritis; E78.00 Pure hypercholesterolemia, unspecified; I10 Essential (primary) hypertension; F17.210 Nicotine dependence, cigarettes, uncomplicated; Z88.5 Allergy status to narcotic agent; Z88.0 Allergy status to penicillin; Z79.899 Other long term (current) drug therapy; Z79.891 Long term (current) use of opiate analgesic; Z79.84 Long term (current) use of oral hypoglycemic drugs
CPT/HCPCS: 36415; 74176; 80048; 80053; 81001; 82962; 83630; 83690; 83735; 85025; 87046; 87086; 87186; 87324; 87899; 93005; 96361; 96365; 96366; 96367; 96375; 96376; 99285; A9270; G0378; J0456; J0696; J1815; J2405; J3480; J7040; J7050; 96374; 99283

== ENCOUNTER 2023-01-18 17:16 | Emergency (ER) | payer MEDICARE, MEDICAID ==
[2023-01-18] MEDS ORDERED: Sodium Chloride 0.9% 2.5 ML Syringe FLUSH PRN (19:37)
[2023-01-18] MEDS ORDERED: Sodium Chloride 0.9% 10 ML Syringe FLUSH PRN (19:37)
[2023-01-18] MEDS ORDERED: Lidocaine 4% 1 each Patch TOP STA ×2 (19:46→22:09)
[2023-01-18] MEDS ORDERED: Ketorolac 30 MG/ML SDV IVPUSH STA (19:50)
[2023-01-18] MEDS ORDERED: Ketorolac 30 MG/ML SDV IM ONE (20:16)
[2023-01-18 20:33] LABS: A/G RATIO 0.9 (0.9-1.6); ALBUMIN 3.9 g/dL (3.4-5.0); BASOPHILS PERCENT AUTO 0.3 % (0.0-1.5); BILIRUBIN TOTAL 0.8 mg/dL (0.2-1.0); CALCIUM 9.3 mg/dL (8.5-10.1); CARBON DIOXIDE,CO2 34.4 mmol/L (21.0-32.0); CREATININE 1.2 mg/dL (0.6-1.0); EOSINOPHILS ABSOLUTE AUTO 0.2 K/uL (0.0-0.7); EOSINOPHILS PERCENT AUTO 2.2 % (0.0-7.0); EST CRCL DRUG DOSING (CG) 49.69 mL/min; HEMATOCRIT 40.7 % (36.0-46.0); HEMOGLOBIN 13.5 g/dL (12.0-16.0); LYMPHOCYTES ABSOLUTE AUTO 2.1 K/uL (0.6-2.4); MEAN CORPUSCULAR HEMOGLOBIN 26.9 pg (27.0-32.0); MEAN CORPUSCULAR HGB CONC 33.2 g/dL (31.0-37.0); MEAN CORPUSCULAR VOLUME 81.2 fL (80.0-98.0); MONOCYTES PERCENT AUTO 9.8 % (0.0-15.0); NEUTROPHILS ABSOLUTE AUTO 6.7 K/uL (1.4-5.7); NEUTROPHILS PERCENT AUTO 66.7 % (48.0-80.0); PLATELET COUNT,PLT 280 K/uL (150-400); POTASSIUM,K 3.1 mmol/L (3.5-5.1); PROTEIN TOTAL,TP 8.1 g/dL (6.4-8.2); RED BLOOD CELL COUNT 5.01 M/uL (4.30-5.90); WHITE BLOOD CELL COUNT,WBC 10.04 K/uL (4.0-11.0)
[2023-01-18 20:39] LABS: C-REACTIVE PROTEIN 4.7 mg/dL (0.00-0.90)
[2023-01-18 22:32] VITALS: BP 123/80; PULSE 84
[2023-01-18 22:39] LABS: URIC ACID 7.9 mg/dL (2.6-7.2)
== END 2023-01-18 22:21 | disposition home or self-care (01) ==
LOC: MW.ED 17:16
DX: M79.672 Pain in left foot (principal); M79.89 Other specified soft tissue disorders; I10 Essential (primary) hypertension; E11.40 Type 2 diabetes mellitus with diabetic neuropathy, unspecified; E78.5 Hyperlipidemia, unspecified; K21.9 Gastro-esophageal reflux disease without esophagitis; E78.00 Pure hypercholesterolemia, unspecified; J45.909 Unspecified asthma, uncomplicated; Z91.018 Allergy to other foods; Z88.0 Allergy status to penicillin; Z88.5 Allergy status to narcotic agent; Z79.4 Long term (current) use of insulin; Z79.899 Other long term (current) drug therapy; Z72.0 Tobacco use
CPT/HCPCS: 36415; 73630; 80053; 84550; 85025; 85652; 86140; 96372; 99283; A9270; J1885; 99284

== ENCOUNTER 2025-02-27 17:59 | Emergency (ER) | payer MEDICARE ==
[2025-02-27] MEDS ORDERED: Sodium Chloride 0.9% 10 ML Syringe FLUSH PRN (18:01)
[2025-02-27] MEDS ORDERED: Sodium Chloride 0.9% 2.5 ML Syringe FLUSH PRN (18:01)
[2025-02-27] MEDS: Ondansetron 4 MG/2 ML SDV IVPUSH ONE (18:37)
[2025-02-27 18:47] LABS: BASOPHILS ABSOLUTE AUTO 0.05 K/uL (0.00-0.20); BASOPHILS PERCENT AUTO 0.6 % (0.0-1.0); EOSINOPHILS ABSOLUTE AUTO 0.03 K/uL (0.00-0.45); EOSINOPHILS PERCENT AUTO 0.4 % (0.0-6.0); IMMATURE GRAN ABSOLUTE AUTO 0.03 K/uL (0.00-0.05); IMMATURE GRAN PERCENT AUTO 0.4 % (0.0-0.4); LYMPHOCYTES ABSOLUTE AUTO 1.38 K/uL (1.00-4.80); LYMPHOCYTES PERCENT AUTO 17.5 % (24.0-44.0); MEAN PLATELET VOLUME 8.9 fL (9.4-12.3); MONOCYTES ABSOLUTE AUTO 0.70 K/uL (0.00-0.80); MONOCYTES PERCENT AUTO 8.9 % (0.0-8.0); NEUTROPHILS ABSOLUTE AUTO 5.71 K/uL (1.80-7.70); NEUTROPHILS PERCENT AUTO 72.2 % (41.0-71.0); NRBC ABSOLUTE 0.00 K/uL (0.00-0.02); NRBC PERCENT 0.0 /100WBC (0.0-0.2); PLATELET COUNT,PLT 298 K/uL (150-400); RED BLOOD CELL COUNT 5.24 M/uL (4.10-5.30); WHITE BLOOD CELL COUNT,WBC 7.90 K/uL (3.9-11.3)
[2025-02-27 19:23] LABS: A/G RATIO 1.0 (0.9-1.6); ALANINE AMINOTRANSFERASE,ALT 62 IU/L (14-63); ASPARTATE AMNIOTRANSFERASE,AST 27 IU/L (15-37); BILIRUBIN TOTAL 0.8 mg/dL (0.2-1.0); BLOOD UREA NITROGEN,BUN 10 mg/dL (7.0-18.0); CARBON DIOXIDE,CO2 28.1 mmol/L (21.0-32.0); CHLORIDE,CL 98 mmol/L (98-107); CREATININE 1.2 mg/dL (0.6-1.0); ETHANOL BLOOD MEDICAL <3 mg/dL; GLUCOSE RANDOM 135 mg/dL (74-106); POTASSIUM,K 3.4 mmol/L (3.5-5.1); PROTEIN TOTAL,TP 8.2 g/dL (6.4-8.2); SODIUM,NA 139 mmol/L (136-145)
[2025-02-27 19:24] LABS: ESTIMATED GFR 52 mL/min (>60)
[2025-02-27 19:45] LABS: GLUCOSE,URINE NEGATIVE (NEGATIVE); OCCULT BLOOD,URINE NEGATIVE (NEGATIVE)
[2025-02-27 19:54] LABS: AMPHETAMINES SCREEN, URINE NEGATIVE (CUTOFF=500); BUPRENORPHINE SCREEN,URINE NEGATIVE (CUTOFF=10); METHADONE SCREEN, URINE NEGATIVE (CUTOFF=200); METHAMPHETAMINES SCREEN, URINE NEGATIVE (CUTOFF=500); OXYCODONE SCREEN,URINE PRESUMPTIVE POSITIVE (CUT0FF=100); PCP SCREEN,URINE NEGATIVE (CUTOFF=25); THC SCREEN,URINE 20 NG/ML NEGATIVE (CUTOFF=50)
[2025-02-27 19:59] LABS: APPEARANCE,URINE HAZY
[2025-02-27 20:00] LABS: EPITHELIAL CELLS,URINE RARE (NONE-FEW)
[2025-02-27] MEDS: droPERidol 2.5 MG/ML SDV IVPUSH ONE (20:15)
[2025-02-27] MEDS: diphenhydrAMINE 50 MG/ML SDV IVPUSH ONE (21:11)
[2025-02-27] MEDS: Ondansetron 4 MG Tab.DIS PO ONE (21:44)
[2025-02-27 21:53] VITALS: BP 139/85; PULSE 90
== END 2025-02-27 21:56 | disposition home or self-care (01) ==
LOC: MW.ED 17:59
DX: E11.43 Type 2 diabetes mellitus with diabetic autonomic (poly)neuropathy (principal); K31.84 Gastroparesis; I10 Essential (primary) hypertension; Z79.4 Long term (current) use of insulin; Z75.3 Unavailability and inaccessibility of health-care facilities; E78.00 Pure hypercholesterolemia, unspecified; Z90.49 Acquired absence of other specified parts of digestive tract; Z90.710 Acquired absence of both cervix and uterus; Z79.899 Other long term (current) drug therapy; Z88.5 Allergy status to narcotic agent; Z88.0 Allergy status to penicillin; Z91.018 Allergy to other foods
CPT/HCPCS: 36415; 80053; 80305; 80307; 81001; 82947; 83690; 83735; 84484; 85025; 93005; 96361; 96374; 96375; 99284; A9270; J1790; J2270; J2405; J2765; J7030; 93010